=== PATIENT | female | born 1945 | race Caucasian/White ===

== ENCOUNTER → 2017-03-05 | Outpatient (CLI) | payer MEDICARE, OTHER | END | disposition home or self-care (01) | LOC: LAB 08:49 | PROVIDERS: ATTEND Internal Medicine | DX: E11.9 Type 2 diabetes mellitus without complications (principal) | CPT/HCPCS: 36415; 83036 ==

== ENCOUNTER → 2017-09-19 | Outpatient (CLI) | payer MEDICARE, OTHER ==
[2017-09-19 10:01] LABS: Basophils # (auto) 0 uL; Basophils % (auto) 0.6 % (0.0-2.0); Eosinophils # (auto) 0.1 uL; Eosinophils % (auto) 1.1 % (0.0-7.0); Hemoglobin 12.2 g/dL (12.2-16.2); Lymphocytes # (auto) 2.4 uL; Lymphocytes % (auto) 31.8 % (10.0-50.0); Mean Corpuscular Hemoglobin 25.7 pg (28.0-32.0); Mean Corpuscular Hgb Conc. 33.1 g/dL (32.0-36.0); Mean Corpuscular Volume 77.9 fL (80.0-100.0); Mean Platelet Volume 7.2 fL (6.9-10.8); Monocytes # (auto) 0.5 uL; Monocytes % (auto) 6.1 % (0.0-12.0); Neutrophils # (auto) 4.6 uL; Neutrophils % (auto) 60.4 % (37.0-80.0); Nucleated Red Blood Cells % 0.1 %; Platelet Count (auto) 163 10^3/uL (140-450); Red Cell Distribution Width 16.9 % (11.8-14.3); White Blood Cell 7.7 10^3/uL (4.4-10.8)
[2017-09-19 10:16] LABS: BUN/Creatinine Ratio 15.6; Bilirubin, Total 0.6 mg/dL (0.2-1.0); Calcium 9.8 mg/dL (8.5-10.1); Potassium 4.1 mmol/L (3.5-5.1); Total Protein 8.8 g/dL (6.4-8.2)
[2017-09-19 10:17] LABS: Urine Bilirubin Negative (Negative); Urine Blood Negative /uL (Negative); Urine Color Yellow (Yellow); Urine Glucose Normal (Normal); Urine Ketone Negative (Negative); Urine Mucus FEW (None Seen); Urine Nitrite Negative (Negative); Urine RBC <1 /hpf (0 - 4); Urine Squamous Epithelial Cell FEW /hpf (<5); Urine Urobilinogen Normal (Negative); Urine pH 5.5 (5.0-8.0)
== END | disposition home or self-care (01) ==
LOC: LAB 09:10
PROVIDERS: ATTEND Internal Medicine
DX: I10 Essential (primary) hypertension (principal); E11.9 Type 2 diabetes mellitus without complications
CPT/HCPCS: 36415; 80053; 80061; 81001; 82043; 82607; 83036; 84439; 85025; 85652

== ENCOUNTER → 2017-10-07 | Outpatient (CLI) | payer MEDICARE, OTHER | END | disposition home or self-care (01) | LOC: LAB 13:30 | PROVIDERS: ATTEND Internal Medicine | DX: I10 Essential (primary) hypertension (principal); E11.9 Type 2 diabetes mellitus without complications | CPT/HCPCS: 82270 ==

== ENCOUNTER 2017-12-27 09:04 | Day surgery (SDC) | payer MEDICARE, OTHER ==
[2017-12-23 16:45] LABS: INR 1.04 (0.9-1.15); Partial Thromboplastin Time 26.1 sec (22.64-33.71); Prothrombin Time 11.3 sec (9.37-12.3)
[2017-12-23 17:03] LABS: Basophils # (auto) 0 uL; Basophils % (auto) 0.5 % (0.0-2.0); Eosinophils # (auto) 0.1 uL; Eosinophils % (auto) 0.8 % (0.0-7.0); Hematocrit 34.1 % (36.0-46.0); Lymphocytes % (auto) 28.5 % (10.0-50.0); Monocytes # (auto) 0.5 uL; Monocytes % (auto) 6.7 % (0.0-12.0); Neutrophils # (auto) 4.6 uL; Neutrophils % (auto) 63.5 % (37.0-80.0); Nucleated Red Blood Cells % 0.1 %
[2017-12-23 17:05] LABS: Hemoglobin 11.1 g/dL (12.2-16.2); Mean Corpuscular Hemoglobin 25.6 pg (28.0-32.0); Mean Corpuscular Hgb Conc. 32.6 g/dL (32.0-36.0); Mean Corpuscular Volume 78.5 fL (80.0-100.0); Platelet Count (auto) 146 10^3/uL (140-450); Red Blood Cells 4.34 10^6/uL (4.0-5.20); Red Cell Distribution Width 16.5 % (11.8-14.3); White Blood Cell 7.2 10^3/uL (4.4-10.8)
[~2017-12-27] VITALS: Ht 162.6 cm; Wt 63.5 kg
[~2017-12-27 09:04] MED LIST: AMIT25TA9 PO; EZET10TA6 PO; FOLI1TAB6 PO; GLIM4TAB42 PO; METF-372 PO; RAMI2.5C33 PO; SITA100T7 PO
[2017-12-27] MEDS ORDERED: diphenhdrAMINE HCL 50 MG/1 ML VL ONE (09:28)
[2017-12-27] MEDS ORDERED: SODIUM CHLORIDE LOCK 10 ML ONE (09:28)
[2017-12-27] MEDS: MIDAZOLAM HCL 5 MG/ML-1ML VIAL ONE ×2 (10:05→10:08)
[2017-12-27] MEDS: fentaNYL CITRATE 100 MCG/2 ML VL ONE ×2 (10:05→10:08)
[2017-12-27 11:23] VITALS: BP 137/72
== END 2017-12-27 11:23 | disposition home or self-care (01) ==
LOC: GI 09:04
PROVIDERS: ATTEND Internal Medicine Gastroenterology
DX: K62.1 Rectal polyp (principal); K57.30 Diverticulosis of large intestine without perforation or abscess without bleeding; K64.8 Other hemorrhoids; E66.9 Obesity, unspecified; Z68.24 Body mass index [BMI] 24.0-24.9, adult; D69.6 Thrombocytopenia, unspecified
CPT/HCPCS: 36415; 45380; 45385; 82962; 85025; 85610; 85730; J1200; J2250; J3010; 99152; 99153

== ENCOUNTER → 2018-03-04 | Outpatient (CLI) | payer MEDICARE, OTHER | END | disposition home or self-care (01) | LOC: LAB 09:28 | PROVIDERS: ATTEND Internal Medicine | DX: E11.9 Type 2 diabetes mellitus without complications (principal); E78.00 Pure hypercholesterolemia, unspecified | CPT/HCPCS: 36415; 83036; 83721 ==

== ENCOUNTER → 2018-07-31 | Outpatient (CLI) | payer MEDICARE, OTHER ==
[2018-07-31 09:16] LABS: Basophils # (auto) 0 uL; Eosinophils # (auto) 0.1 uL; Mean Corpuscular Volume 78.2 fL (80.0-100.0); Monocytes # (auto) 0.3 uL; Neutrophils # (auto) 2.6 uL; Platelet Count (auto) 122 10^3/uL (140-450)
[2018-07-31 09:23] LABS: Basophils % (auto) 0.4 % (0.0-2.0); Eosinophils % (auto) 1.1 % (0.0-7.0); Hematocrit 33.8 % (36.0-46.0); Hemoglobin 10.8 g/dL (12.2-16.2); Lymphocytes % (auto) 39.6 % (10.0-50.0); Mean Corpuscular Hemoglobin 25.1 pg (28.0-32.0); Mean Corpuscular Hgb Conc. 32.1 g/dL (32.0-36.0); Monocytes % (auto) 7.1 % (0.0-12.0); Neutrophils % (auto) 51.8 % (37.0-80.0); Red Blood Cells 4.32 10^6/uL (4.0-5.20); Red Cell Distribution Width 18.5 % (11.8-14.3); White Blood Cell 4.9 10^3/uL (4.4-10.8)
[2018-07-31 09:49] LABS: Urine Bacteria NONE SEEN /hpf (None Seen); Urine Blood Negative /uL (Negative); Urine Specific Gravity 1.017 (1.001-1.035); Urine WBC 1 /hpf (0 - 5)
[2018-07-31 10:06] LABS: BUN/Creatinine Ratio 20.3; Bilirubin, Total 0.4 mg/dL (0.2-1.0); Calcium 9.4 mg/dL (8.5-10.1); Potassium 4.1 mmol/L (3.5-5.1); Total Protein 7.8 g/dL (6.4-8.2)
[2018-07-31 10:10] LABS: Free T4 (Free Thyroxine) 1.02 ng/dL (0.89-1.76)
== END | disposition home or self-care (01) ==
LOC: LAB 08:51
PROVIDERS: ATTEND Internal Medicine
DX: E11.9 Type 2 diabetes mellitus without complications (principal); E78.00 Pure hypercholesterolemia, unspecified; I10 Essential (primary) hypertension; Z79.899 Other long term (current) drug therapy
CPT/HCPCS: 36415; 80053; 80061; 81001; 82043; 82607; 83036; 84439; 84443; 85025; 85652

== ENCOUNTER → 2018-11-27 | Outpatient (CLI) | payer MEDICARE, OTHER ==
[2018-11-27 09:50] LABS: Basophils # (auto) 0 uL; Eosinophils # (auto) 0.1 uL; Mean Corpuscular Volume 75.4 fL (80.0-100.0); Monocytes # (auto) 0.3 uL; Nucleated Red Blood Cells % 0.1 %; Red Cell Distribution Width 17.8 % (11.8-14.3)
[2018-11-27 09:52] LABS: Basophils % (auto) 0.7 % (0.0-2.0); Eosinophils % (auto) 1.5 % (0.0-7.0); Hematocrit 32.1 % (36.0-46.0); Hemoglobin 10.2 g/dL (12.2-16.2); Lymphocytes # (auto) 1.7 uL; Lymphocytes % (auto) 33.8 % (10.0-50.0); Mean Corpuscular Hgb Conc. 31.9 g/dL (32.0-36.0); Monocytes % (auto) 6.7 % (0.0-12.0); Neutrophils # (auto) 2.8 uL; Neutrophils % (auto) 57.3 % (37.0-80.0); Platelet Count (auto) 145 10^3/uL (140-450); Red Blood Cells 4.26 10^6/uL (4.0-5.20); White Blood Cell 4.9 10^3/uL (4.4-10.8)
== END | disposition home or self-care (01) ==
LOC: LAB 09:13
PROVIDERS: ATTEND Internal Medicine
DX: D64.9 Anemia, unspecified (principal)
CPT/HCPCS: 36415; 82607; 83540; 83615; 85025

== ENCOUNTER → 2019-03-03 | Outpatient (CLI) | payer MEDICARE, OTHER | END | disposition home or self-care (01) | LOC: LAB 09:35 | PROVIDERS: ATTEND Internal Medicine | DX: E11.9 Type 2 diabetes mellitus without complications (principal); E78.5 Hyperlipidemia, unspecified | CPT/HCPCS: 36415; 83036; 83540; 83721 ==

== ENCOUNTER → 2019-08-06 | Outpatient (CLI) | payer MEDICARE, OTHER ==
[~2019-08-06] MED LIST changes: +EZET10TA22 PO; -EZET10TA6 PO
[2019-08-06 10:20] LABS: Urine Bacteria FEW /hpf (None Seen); Urine Blood Negative /uL (Negative); Urine Mucus FEW (None Seen); Urine Specific Gravity 1.013 (1.001-1.035); Urine WBC 12 /hpf (0 - 5)
[2019-08-06 10:27] LABS: Basophils # (auto) 0 uL; Basophils % (auto) 0.7 % (0.0-2.0); Eosinophils # (auto) 0.1 uL; Eosinophils % (auto) 1.4 % (0.0-7.0); Hematocrit 32.3 % (36.0-46.0); Hemoglobin 10.7 g/dL (12.2-16.2); Lymphocytes # (auto) 1.4 uL; Mean Corpuscular Hemoglobin 26.2 pg (28.0-32.0); Mean Corpuscular Hgb Conc. 33.1 g/dL (32.0-36.0); Mean Corpuscular Volume 79.2 fL (80.0-100.0); Monocytes # (auto) 0.3 uL; Neutrophils # (auto) 2.6 uL; Neutrophils % (auto) 58.9 % (37.0-80.0); Nucleated Red Blood Cells % 0.1 %; Platelet Count (auto) 124 10^3/uL (140-450); Red Blood Cells 4.07 10^6/uL (4.0-5.20); Red Cell Distribution Width 16.5 % (11.8-14.3); White Blood Cell 4.4 10^3/uL (4.4-10.8)
[2019-08-06 11:00] LABS: Potassium 4.1 mmol/L (3.5-5.1)
[2019-08-06 11:09] LABS: BUN/Creatinine Ratio 16.5; Bilirubin, Total 0.6 mg/dL (0.2-1.0); Calcium 9.8 mg/dL (8.5-10.1); Total Protein 7.8 g/dL (6.4-8.2)
[2019-08-06 11:38] LABS: Free T4 (Free Thyroxine) 1.05 ng/dL (0.89-1.76)
[2019-08-06 11:39] LABS: Folate (Folic Acid) 21.37 ng/mL (5.38-24)
== END | disposition home or self-care (01) ==
LOC: LAB 09:38
PROVIDERS: ATTEND Internal Medicine
DX: E11.9 Type 2 diabetes mellitus without complications (principal); I10 Essential (primary) hypertension; D64.9 Anemia, unspecified
CPT/HCPCS: 36415; 80053; 80061; 81001; 82043; 82607; 82746; 83036; 83540; 84439; 84443; 85025; 85652

== ENCOUNTER → 2019-10-07 | Outpatient (CLI) | payer MEDICARE, OTHER ==
[2019-10-07 09:30] LABS: Hematocrit 32.6 % (36.0-46.0); Hemoglobin 10.8 g/dL (12.2-16.2); Mean Corpuscular Volume 80.2 fL (80.0-100.0); Red Blood Cells 4.07 10^6/uL (4.0-5.20)
[2019-10-07 09:32] LABS: Basophils # (auto) 0 uL; Basophils % (auto) 0.7 % (0.0-2.0); Eosinophils # (auto) 0.1 uL; Eosinophils % (auto) 1.2 % (0.0-7.0); Lymphocytes # (auto) 1.1 uL; Lymphocytes % (auto) 28.2 % (10.0-50.0); Mean Corpuscular Hemoglobin 26.6 pg (28.0-32.0); Mean Corpuscular Hgb Conc. 33.2 g/dL (32.0-36.0); Monocytes # (auto) 0.3 uL; Monocytes % (auto) 8.3 % (0.0-12.0); Neutrophils # (auto) 2.5 uL; Neutrophils % (auto) 61.6 % (37.0-80.0); Nucleated Red Blood Cells % 0.2 %; Platelet Count (auto) 105 10^3/uL (140-450); Red Cell Distribution Width 19.1 % (11.8-14.3)
[2019-10-07 10:21] LABS: % Iron Saturation 11.6 % (15-50)
[2019-10-07 10:26] LABS: Albumin 3.7 g/dL (3.4-5.0); Calcium 9.5 mg/dL (8.5-10.1); Potassium 3.9 mmol/L (3.5-5.1)
[2019-10-07 10:30] LABS: BUN/Creatinine Ratio 18.7; Bilirubin, Total 0.5 mg/dL (0.2-1.0); Total Protein 7.6 g/dL (6.4-8.2)
[2019-10-08 15:47] LABS: Hepatitis B Surface Antibody Negative
[2019-10-08 16:21] LABS: Hepatitis B Surface Antigen Negative (Negative)
[2019-10-08 16:25] LABS: Hepatitis A Total Antibody Positive
[2019-10-08 16:44] LABS: Hepatitis B Core Total AB Negative; Hepatitis C Antibody Negative (Negative)
== END | disposition home or self-care (01) ==
LOC: LAB 09:09
PROVIDERS: ATTEND Internal Medicine
DX: D64.9 Anemia, unspecified (principal); Z11.59 Encounter for screening for other viral diseases
CPT/HCPCS: 36415; 80053; 83540; 83550; 83615; 85025; 86704; 86706; 86708; 86803; 87340

== ENCOUNTER → 2019-12-11 | Outpatient (CLI) | payer MEDICARE, OTHER | END | disposition home or self-care (01) | LOC: XYW 09:34 | PROVIDERS: ATTEND Internal Medicine | DX: I08.2 Rheumatic disorders of both aortic and tricuspid valves (principal); I25.10 Atherosclerotic heart disease of native coronary artery without angina pectoris | CPT/HCPCS: 93306 ==

== ENCOUNTER → 2019-12-15 | Outpatient (CLI) | payer MEDICARE, OTHER ==
[2019-12-15 10:26] LABS: % Iron Saturation 25.5 % (15-50)
== END | disposition home or self-care (01) ==
LOC: LAB 09:48
PROVIDERS: ATTEND Internal Medicine Hematology & Oncology
DX: R94.5 Abnormal results of liver function studies (principal); I25.10 Atherosclerotic heart disease of native coronary artery without angina pectoris; D50.9 Iron deficiency anemia, unspecified
CPT/HCPCS: 83540; 83550

== ENCOUNTER → 2020-01-05 | Outpatient (CLI) | payer MEDICARE, OTHER ==
[~2020-01-05] MED LIST changes: +ASPI-404 PO; +CHOL200031 PO; +FERR-20 PO; +LEVO25TA6 PO
[2020-01-05 09:49] LABS: Urine WBC None Seen /hpf (0 - 5)
[2020-01-05 09:54] LABS: Basophils # (auto) 0 uL; Basophils % (auto) 0.5 % (0.0-2.0); Eosinophils # (auto) 0.1 uL; Eosinophils % (auto) 1.3 % (0.0-7.0); Hematocrit 35.6 % (36.0-46.0); Hemoglobin 11.9 g/dL (12.2-16.2); Lymphocytes # (auto) 1.5 uL; Lymphocytes % (auto) 34.4 % (10.0-50.0); Mean Corpuscular Hemoglobin 28.4 pg (28.0-32.0); Mean Corpuscular Hgb Conc. 33.3 g/dL (32.0-36.0); Mean Corpuscular Volume 85.5 fL (80.0-100.0); Monocytes # (auto) 0.3 uL; Monocytes % (auto) 6.5 % (0.0-12.0); Neutrophils # (auto) 2.6 uL; Neutrophils % (auto) 57.3 % (37.0-80.0); Nucleated Red Blood Cells % 0.2 %; Platelet Count (auto) 90 10^3/uL (140-450); Red Blood Cells 4.17 10^6/uL (4.0-5.20); Red Cell Distribution Width 17.5 % (11.8-14.3); White Blood Cell 4.5 10^3/uL (4.4-10.8)
[2020-01-05 09:59] LABS: Urine Bacteria NONE SEEN /hpf (None Seen); Urine Blood Negative /uL (Negative); Urine Mucus FEW (None Seen); Urine Specific Gravity 1.022 (1.001-1.035)
[2020-01-05 10:16] LABS: Potassium 3.9 mmol/L (3.5-5.1)
[2020-01-05 10:21] LABS: Free T4 (Free Thyroxine) 1.03 ng/dL (0.89-1.76)
[2020-01-05 10:22] LABS: % Iron Saturation 19.5 % (15-50)
[2020-01-05 10:27] LABS: Albumin 4.2 g/dL (3.4-5.0); BUN/Creatinine Ratio 18.4; Bilirubin, Total 0.7 mg/dL (0.2-1.0); Calcium 10.2 mg/dL (8.5-10.1)
[2020-01-05 10:32] LABS: INR 1.14 (0.9-1.15)
== END | disposition home or self-care (01) ==
LOC: LAB 09:18
PROVIDERS: ATTEND Internal Medicine
DX: Z01.818 Encounter for other preprocedural examination (principal); E11.40 Type 2 diabetes mellitus with diabetic neuropathy, unspecified; D64.9 Anemia, unspecified; I10 Essential (primary) hypertension
CPT/HCPCS: 36415; 80053; 80061; 81001; 82043; 82607; 83036; 83540; 83550; 84439; 84443; 85025; 85610; 85652

== ENCOUNTER → 2020-01-18 | Day surgery (SDC) | payer MEDICARE, OTHER ==
[2020-01-15 11:07] LABS: Basophils # (auto) 0 uL; Basophils % (auto) 0.5 % (0.0-2.0); Eosinophils # (auto) 0 uL; Eosinophils % (auto) 0.7 % (0.0-7.0); Hemoglobin 11.4 g/dL (12.2-16.2); Lymphocytes % (auto) 20.4 % (10.0-50.0); Mean Corpuscular Hemoglobin 28.7 pg (28.0-32.0); Mean Corpuscular Hgb Conc. 33.6 g/dL (32.0-36.0); Mean Corpuscular Volume 85.6 fL (80.0-100.0); Monocytes # (auto) 0.3 uL; Monocytes % (auto) 6.6 % (0.0-12.0); Neutrophils # (auto) 3.3 uL; Neutrophils % (auto) 71.8 % (37.0-80.0); Platelet Count (auto) 102 10^3/uL (140-450); Red Blood Cells 3.98 10^6/uL (4.0-5.20); Red Cell Distribution Width 16.7 % (11.8-14.3); White Blood Cell 4.7 10^3/uL (4.4-10.8)
[2020-01-15 11:20] LABS: Urine Bacteria FEW /hpf (None Seen); Urine Blood Negative /uL (Negative); Urine Mucus FEW (None Seen); Urine Specific Gravity 1.031 (1.001-1.035); Urine WBC 5 /hpf (0 - 5)
[2020-01-15 11:25] LABS: INR 1.16 (0.9-1.15); Partial Thromboplastin Time 25.9 sec (23.64-32.05)
[2020-01-15 11:35] LABS: Potassium 4.1 mmol/L (3.5-5.1)
[2020-01-15 11:42] LABS: Albumin 3.8 g/dL (3.4-5.0); BUN/Creatinine Ratio 16.1; Bilirubin, Total 0.8 mg/dL (0.2-1.0); Calcium 9.9 mg/dL (8.5-10.1); Total Protein 7.9 g/dL (6.4-8.2)
[~2020-01-18] VITALS: Ht 162.6 cm; Wt 72.6 kg
[~2020-01-18] MED LIST changes: +EPINEPHrine HCL 1 MG/1 ML AMP ONE; -EZET10TA22 PO; +MIDAZOLAM HCL 1MG/1ML-2 ML VIAL ONE; +ONDANSETRON HCL 4 MG/2 ML VIAL IV PRN; +PROPOFOL 10 MG/ML 20 ML IV ONE; +ROCURONIUM 10MG/ML 10ML VIAL IV ONE; +ROPIVACAINE 0.5% (5MG/ML) 20ML AMPULE IJ ONE; +SUCCINYLCHOLINE CHLORIDE 20 MG/ML 10ML VIAL IV ONE; +ceFAZolin 1GM/50ML 50 ML IV ONE; +ePHEDrine SULFATE 50 MG/ML AMP IV PRN; +fentaNYL CITRATE 100 MCG/2 ML VL IV ONE; +fentaNYL CITRATE 100 MCG/2 ML VL IV PRN; +fentaNYL CITRATE 100 MCG/2 ML VL ONE; +hydrALAZINE HCL 20 MG/ML VL IV PRN
[2020-01-18 09:24] VITALS: BP 128/59
== END | disposition home or self-care (01) ==
LOC: SUR 06:11
PROVIDERS: ATTEND Orthopaedic Surgery Adult Reconstructive Orthopaedic Surgery
DX: S83.242A Other tear of medial meniscus, current injury, left knee, initial encounter (principal); D64.9 Anemia, unspecified; J45.909 Unspecified asthma, uncomplicated; I25.10 Atherosclerotic heart disease of native coronary artery without angina pectoris; E11.9 Type 2 diabetes mellitus without complications; Z98.890 Other specified postprocedural states; X58.XXXA Exposure to other specified factors, initial encounter; Y93.89 Activity, other specified; Y92.89 Other specified places as the place of occurrence of the external cause; Y99.8 Other external cause status
CPT/HCPCS: 29880; 36415; 80053; 81001; 82962; 85025; 85610; 85730; J0171; J0330; J0690; J2250; J2704; J2795; J3010

== ENCOUNTER → 2020-02-10 | Outpatient (CLI) | payer MEDICARE, OTHER ==
[~2020-02-10] MED LIST changes: -ASPI-404 PO; +ASPI-543 PO; -EPINEPHrine HCL 1 MG/1 ML AMP ONE; -MIDAZOLAM HCL 1MG/1ML-2 ML VIAL ONE; -ONDANSETRON HCL 4 MG/2 ML VIAL IV PRN; -PROPOFOL 10 MG/ML 20 ML IV ONE; -ROCURONIUM 10MG/ML 10ML VIAL IV ONE; -ROPIVACAINE 0.5% (5MG/ML) 20ML AMPULE IJ ONE; -SUCCINYLCHOLINE CHLORIDE 20 MG/ML 10ML VIAL IV ONE; -ceFAZolin 1GM/50ML 50 ML IV ONE; -ePHEDrine SULFATE 50 MG/ML AMP IV PRN; -fentaNYL CITRATE 100 MCG/2 ML VL IV ONE; -fentaNYL CITRATE 100 MCG/2 ML VL IV PRN; -fentaNYL CITRATE 100 MCG/2 ML VL ONE; -hydrALAZINE HCL 20 MG/ML VL IV PRN
[2020-02-10 11:38] LABS: Basophils # (auto) 0 10 ^3/uL (0-0.2); Basophils % (auto) 0.8 % (0.0-2.0); Eosinophils # (auto) 0 10 ^3/uL (0-0.8); Eosinophils % (auto) 1.1 % (0.0-7.0); Hematocrit 32.4 % (36.0-46.0); Hemoglobin 10.6 g/dL (12.2-16.2); Lymphocytes # (auto) 0.9 10 ^3/uL (0.4-5.4); Lymphocytes % (auto) 25.1 % (10.0-50.0); Mean Corpuscular Hgb Conc. 32.8 g/dL (32.0-36.0); Mean Corpuscular Volume 85.3 fL (80.0-100.0); Monocytes # (auto) 0.3 10 ^3/uL (0-1.3); Monocytes % (auto) 7.3 % (0.0-12.0); Neutrophils # (auto) 2.4 10 ^3/uL (1.6-8.6); Neutrophils % (auto) 65.7 % (37.0-80.0); Nucleated Red Blood Cells % 0.1 %; Platelet Count (auto) 122 10^3/uL (140-450); Red Blood Cells 3.79 10^6/uL (4.0-5.20); Red Cell Distribution Width 16.7 % (11.8-14.3); White Blood Cell 3.6 10^3/uL (4.4-10.8)
[2020-02-10 12:02] LABS: Albumin 3.7 g/dL (3.4-5.0); Calcium 9.9 mg/dL (8.5-10.1); Potassium 4.3 mmol/L (3.5-5.1)
[2020-02-10 12:07] LABS: % Iron Saturation 19.2 % (15-50); BUN/Creatinine Ratio 14.8; Bilirubin, Total 0.8 mg/dL (0.2-1.0); Total Protein 7.9 g/dL (6.4-8.2)
[2020-02-10 12:08] LABS: Ferritin 83.9 ng/mL (10-322)
[2020-02-10 12:09] LABS: Folate (Folic Acid) 22.65 ng/mL (5.38-24)
== END | disposition home or self-care (01) ==
LOC: LAB 11:14
PROVIDERS: ATTEND Internal Medicine Hematology & Oncology
DX: D50.9 Iron deficiency anemia, unspecified (principal); R94.5 Abnormal results of liver function studies
CPT/HCPCS: 36415; 80053; 82607; 82728; 82746; 83540; 83550; 85025

== ENCOUNTER → 2020-06-21 | Outpatient (CLI) | payer MEDICARE, OTHER ==
[~2020-06-21] MED LIST changes: +ASPI-404 PO; -ASPI-543 PO
[2020-06-21 10:39] LABS: Basophils # (auto) 0 10 ^3/uL (0-0.2); Eosinophils # (auto) 0 10 ^3/uL (0-0.8); Hemoglobin 10.9 g/dL (12.2-16.2); Lymphocytes # (auto) 1.3 10 ^3/uL (0.4-5.4); Monocytes # (auto) 0.4 10 ^3/uL (0-1.3); Nucleated Red Blood Cells % 0.1 %; White Blood Cell 4.8 10^3/uL (4.4-10.8)
[2020-06-21 10:41] LABS: Basophils % (auto) 0.4 % (0.0-2.0); Eosinophils % (auto) 0.5 % (0.0-7.0); Hematocrit 33.3 % (36.0-46.0); Lymphocytes % (auto) 26.2 % (10.0-50.0); Mean Corpuscular Hgb Conc. 32.8 g/dL (32.0-36.0); Mean Corpuscular Volume 82.3 fL (80.0-100.0); Monocytes % (auto) 7.4 % (0.0-12.0); Neutrophils # (auto) 3.1 10 ^3/uL (1.6-8.6); Neutrophils % (auto) 65.5 % (37.0-80.0); Platelet Count (auto) 99 10^3/uL (140-450); Red Blood Cells 4.05 10^6/uL (4.0-5.20); Red Cell Distribution Width 17.7 % (11.8-14.3)
[2020-06-21 11:16] LABS: Cholesterol 288 mg/dL (< 200); HDL Cholesterol 61 mg/dL (40-59); LDL Cholesterol 197 mg/dL (< 100); Triglycerides 112 mg/dL (< 150)
[2020-06-21 11:29] LABS: Prolactin 28.8 ng/mL (2.8-29.2)
[2020-06-21 11:30] LABS: Free T4 (Free Thyroxine) 0.93 ng/dL (0.89-1.76)
== END | disposition home or self-care (01) ==
LOC: LAB 10:05
PROVIDERS: ATTEND Internal Medicine
DX: E11.42 Type 2 diabetes mellitus with diabetic polyneuropathy (principal); E03.9 Hypothyroidism, unspecified; D35.2 Benign neoplasm of pituitary gland
CPT/HCPCS: 36415; 80061; 83036; 84146; 84439; 84443; 85025

== ENCOUNTER → 2020-10-24 | Outpatient (CLI) | payer MEDICARE, OTHER ==
[~2020-10-24] MED LIST changes: -ASPI-404 PO; +ASPI-543 PO
[2020-10-24 09:57] LABS: Basophils # (auto) 0 10 ^3/uL (0-0.2); Basophils % (auto) 0.7 % (0.0-2.0); Eosinophils # (auto) 0.1 10 ^3/uL (0-0.8); Eosinophils % (auto) 1.7 % (0.0-7.0); Hematocrit 32.8 % (36.0-46.0); Hemoglobin 10.8 g/dL (12.2-16.2); Lymphocytes # (auto) 1.3 10 ^3/uL (0.4-5.4); Lymphocytes % (auto) 32.6 % (10.0-50.0); Mean Corpuscular Hemoglobin 27.4 pg (28.0-32.0); Mean Corpuscular Hgb Conc. 32.9 g/dL (32.0-36.0); Mean Corpuscular Volume 83.2 fL (80.0-100.0); Monocytes # (auto) 0.4 10 ^3/uL (0-1.3); Monocytes % (auto) 9.1 % (0.0-12.0); Neutrophils # (auto) 2.2 10 ^3/uL (1.6-8.6); Neutrophils % (auto) 55.9 % (37.0-80.0); Nucleated Red Blood Cells % 0.1 %; Platelet Count (auto) 108 10^3/uL (140-450); Red Blood Cells 3.95 10^6/uL (4.0-5.20); Red Cell Distribution Width 17.9 % (11.8-14.3)
[2020-10-24 10:28] LABS: Albumin 3.7 g/dL (3.4-5.0); BUN/Creatinine Ratio 14.1; Calcium 9.7 mg/dL (8.5-10.1); Potassium 4.1 mmol/L (3.5-5.1)
[2020-10-24 10:33] LABS: Bilirubin, Total 0.8 mg/dL (0.2-1.0); Total Protein 7.5 g/dL (6.4-8.2)
[2020-10-24 14:07] LABS: % Iron Saturation 12.5 % (15-50)
[2020-10-24 14:58] LABS: Ferritin 17.4 ng/mL (10-322)
[2020-10-24 14:59] LABS: Folate (Folic Acid) > 24.00 ng/mL (5.38-24)
== END | disposition home or self-care (01) ==
LOC: LAB 09:33
PROVIDERS: ATTEND Internal Medicine
DX: E11.9 Type 2 diabetes mellitus without complications (principal); E78.5 Hyperlipidemia, unspecified
CPT/HCPCS: 36415; 80053; 80061; 82607; 82728; 82746; 83036; 83540; 83550; 83615; 84443; 85025

== ENCOUNTER 2020-11-14 09:40 | Inpatient (IN) | payer MEDICARE, OTHER ==
[~2020-11-14] VITALS: Ht 162.6 cm; Wt 65.0 kg
[2020-11-14] MEDS ORDERED: SODIUM CHLORIDE 0.9% 1,000 ML IV ONE (10:00)
[2020-11-14 10:07] LABS: Basophils # (auto) 0 10 ^3/uL (0-0.2); Basophils % (auto) 0.4 % (0.0-2.0); Eosinophils # (auto) 0 10 ^3/uL (0-0.8); Hematocrit 32.9 % (36.0-46.0); Hemoglobin 11.1 g/dL (12.2-16.2); Lymphocytes # (auto) 0.8 10 ^3/uL (0.4-5.4); Lymphocytes % (auto) 9.1 % (10.0-50.0); Mean Corpuscular Hgb Conc. 33.9 g/dL (32.0-36.0); Mean Corpuscular Volume 79.8 fL (80.0-100.0); Monocytes # (auto) 0.6 10 ^3/uL (0-1.3); Monocytes % (auto) 6.4 % (0.0-12.0); Neutrophils # (auto) 7.6 10 ^3/uL (1.6-8.6); Neutrophils % (auto) 84.1 % (37.0-80.0); Nucleated Red Blood Cells % 0.1 %; Platelet Count (auto) 153 10^3/uL (140-450); Red Blood Cells 4.12 10^6/uL (4.0-5.20); Red Cell Distribution Width 16.8 % (11.8-14.3)
[2020-11-14 10:29] LABS: Calcium 9.1 mg/dL (8.5-10.1); Chloride 91 mmol/L (98-107); Potassium 3.7 mmol/L (3.5-5.1); Sodium 124 mmol/L (136-145)
[2020-11-14 10:39] LABS: Alanine Aminotransferase 34 U/L (13-56); Alkaline Phosphatase 238 U/L (45-117); Anion Gap 12 (5-15); Aspartate Aminotransferase 57 U/L (15-37); BUN/Creatinine Ratio 14.3; Bilirubin, Total 1.2 mg/dL (0.2-1.0); Blood Urea Nitrogen 13 mg/dL (7-18); Carbon Dioxide 21 mmol/L (21-32); GFR African American 77 mL/min; GFR Non-African American 64 mL/min; Glucose 304 mg/dL (74-106); Total Protein 7.6 g/dL (6.4-8.2)
[2020-11-14 10:48] LABS: INR 1.17 (0.9-1.15); Partial Thromboplastin Time 26.2 sec (23.0-31.2)
[2020-11-14] MEDS ORDERED: DOXYCYCLINE 100MG/250ML 250 ML IV ONE (18:00)
[2020-11-14] MEDS ORDERED: MORPHINE SULF INJ 2 MG/ML SYRINGE 1ML IV PRN ×2 (18:45)
[2020-11-14] MEDS ORDERED: DEXTROSE (50%) 50ML SYRG IV PRN (18:45)
[2020-11-14] MEDS ORDERED: HYDROcodone-ACET 5/325MG TAB PO PRN (18:45)
[2020-11-14] MEDS ORDERED: ONDANSETRON HCL 4 MG/2 ML VIAL IV PRN (18:45)
[2020-11-14] MEDS ORDERED: REMDESIVIR PER PHARMACY 0 ML IV SCH (18:45)
[2020-11-14] MEDS ORDERED: ACETAMINOPHEN 500 MG TAB PO PRN (18:45)
[2020-11-14] MEDS ORDERED: NITROGLYCERIN 0.4 MG SL TAB SL PRN (18:45)
[2020-11-14] MEDS: InsuLIN REG 1unit/0.01ml Soln (100units/ml) SC SCH (21:32)
[2020-11-14] MEDS: BUDESONIDE (INHALATION) 180 MCG IH IN SCH (21:32)
[2020-11-14 21:33] LABS: CRP High Sensitivity 16.3 mg/dL (< 0.3)
[2020-11-14] MEDS: ENOXAPARIN SOD 40 MG/0.4 ML SYRINGE SC SCH (21:33)
[2020-11-14] MEDS: ACCU-CHEK COMFORT CURVE STRIP VI SCH (21:33)
[2020-11-14] MEDS ORDERED: BUDESONIDE (INHALATION) 0.5 MG/2 ML NEB NEB SCH (22:00)
[2020-11-15 05:47] LABS: Basophils # (auto) 0 10 ^3/uL (0-0.2); Eosinophils # (auto) 0 10 ^3/uL (0-0.8); Hemoglobin 10.3 g/dL (12.2-16.2); Lymphocytes # (auto) 0.9 10 ^3/uL (0.4-5.4); Monocytes # (auto) 0.6 10 ^3/uL (0-1.3); Monocytes % (auto) 7.6 % (0.0-12.0); White Blood Cell 7.5 10^3/uL (4.4-10.8)
[2020-11-15 05:49] LABS: Basophils % (auto) 0.1 % (0.0-2.0); Hematocrit 31.1 % (36.0-46.0); Lymphocytes % (auto) 11.5 % (10.0-50.0); Mean Corpuscular Hemoglobin 26.4 pg (28.0-32.0); Mean Corpuscular Hgb Conc. 33.1 g/dL (32.0-36.0); Mean Corpuscular Volume 79.7 fL (80.0-100.0); Neutrophils # (auto) 6.1 10 ^3/uL (1.6-8.6); Neutrophils % (auto) 80.8 % (37.0-80.0); Platelet Count (auto) 165 10^3/uL (140-450); Red Cell Distribution Width 16.7 % (11.8-14.3)
[2020-11-15 06:05] LABS: BUN/Creatinine Ratio 13.1; Calcium 8.7 mg/dL (8.5-10.1); Potassium 3.2 mmol/L (3.5-5.1)
[2020-11-15] MEDS: BUDESONIDE (INHALATION) 180 MCG IH IN SCH ×2 (07:02→19:07)
[2020-11-15] MEDS: InsuLIN REG 1unit/0.01ml Soln (100units/ml) SC SCH ×4 (07:03→22:00)
[2020-11-15] MEDS: ACCU-CHEK COMFORT CURVE STRIP VI SCH ×4 (07:03→22:00)
[2020-11-15] MEDS: CHOLECALCIFEROL (VITD3) 2,000 UNIT CAP PO SCH (10:00)
[2020-11-15] MEDS: cefTRIAXone 1GM/50ML D5W 50 ML IV SCH (11:10)
[2020-11-15] MEDS: ZINC SULFATE 220mg CAP or TAB PO SCH (11:11)
[2020-11-15] MEDS: AZITHROMYCIN 500MG/ 250ML 250 ML IV SCH (11:11)
[2020-11-15] MEDS: FAMOTIDINE 20 MG TAB PO SCH (11:12)
[2020-11-15] MEDS: ASCORBIC ACID 1,000 MG TAB PO SCH (11:12)
[2020-11-15] MEDS: DexAMETHasone SOD PHOS 10MG/1ML VIAL INJ IV SCH (11:12)
[2020-11-15] MEDS: ENOXAPARIN SOD 40 MG/0.4 ML SYRINGE SC SCH ×2 (11:12→22:00)
[2020-11-15 12:06] LABS: Albumin 2.6 g/dL (3.4-5.0); Bilirubin, Direct 0.6 mg/dL (0-0.2); Bilirubin, Total 0.9 mg/dL (0.2-1.0); Total Protein 6.5 g/dL (6.4-8.2)
[2020-11-15 12:06] LABS: Urine Bacteria NONE SEEN /hpf (None Seen); Urine Blood Negative /uL (Negative); Urine Mucus FEW (None Seen); Urine Specific Gravity 1.016 (1.001-1.035); Urine WBC 7 /hpf (0 - 5)
[2020-11-15] MEDS: ALBUTEROL SULF HFA 90MCG INH 200DOSE IN PRN ×2 (14:56→21:21)
[2020-11-15] MEDS ORDERED: FUROSEMIDE 20 MG/2 ML VIAL IV ONE (16:00)
[2020-11-15] MEDS ORDERED: POTASSIUM CHL 10 Meq TABLET PO ONE (16:00)
[2020-11-15] MEDS ORDERED: REMDESIVIR 200 MG in NS 210ml LOADING DOSE ADULT IV ONE (17:00)
[2020-11-15] MEDS: FERROUS SULFATE 325 MG TAB PO SCH (18:00)
[2020-11-15] MEDS ORDERED: IOHEXOL 350 MG/ML 100ML IJ ONE (21:54)
[2020-11-16 00:30] VITALS: BP 145/76
[2020-11-16 01:42] VITALS: BP 145/76
[2020-11-16 05:00] VITALS: BP 143/60
[2020-11-16] MEDS: LEVOTHYROXINE SODIUM 25 MCG TAB PO SCH (06:07)
[2020-11-16] MEDS: InsuLIN REG 1unit/0.01ml Soln (100units/ml) SC SCH ×4 (06:07→21:22)
[2020-11-16] MEDS: ACCU-CHEK COMFORT CURVE STRIP VI SCH ×4 (06:08→21:13)
[2020-11-16 06:11] LABS: Basophils # (auto) 0 10 ^3/uL (0-0.2); Basophils % (auto) 0.1 % (0.0-2.0); Eosinophils # (auto) 0 10 ^3/uL (0-0.8); Hematocrit 33.1 % (36.0-46.0); Hemoglobin 11.3 g/dL (12.2-16.2); Lymphocytes # (auto) 0.7 10 ^3/uL (0.4-5.4); Lymphocytes % (auto) 7.9 % (10.0-50.0); Mean Corpuscular Hgb Conc. 34.1 g/dL (32.0-36.0); Mean Corpuscular Volume 79.4 fL (80.0-100.0); Monocytes # (auto) 0.7 10 ^3/uL (0-1.3); Monocytes % (auto) 7.2 % (0.0-12.0); Neutrophils % (auto) 84.8 % (37.0-80.0); Platelet Count (auto) 181 10^3/uL (140-450); Red Blood Cells 4.18 10^6/uL (4.0-5.20); Red Cell Distribution Width 16.7 % (11.8-14.3); White Blood Cell 9.4 10^3/uL (4.4-10.8)
[2020-11-16 06:18] LABS: INR 1.24 (0.9-1.15)
[2020-11-16 06:29] LABS: Chloride 99 mmol/L (98-107); Potassium 3.4 mmol/L (3.5-5.1); Sodium 134 mmol/L (136-145)
[2020-11-16 06:47] LABS: Alanine Aminotransferase 22 U/L (13-56); Albumin 2.6 g/dL (3.4-5.0); Alkaline Phosphatase 199 U/L (45-117); Anion Gap 8 (5-15); Aspartate Aminotransferase 48 U/L (15-37); BUN/Creatinine Ratio 19.7; Bilirubin, Total 0.9 mg/dL (0.2-1.0); Blood Urea Nitrogen 14 mg/dL (7-18); Calcium 8.9 mg/dL (8.5-10.1); Carbon Dioxide 27 mmol/L (21-32); Cholesterol 186 mg/dL (< 200); GFR African American 103 mL/min; GFR Non-African American 85 mL/min; Glucose 177 mg/dL (74-106); HDL Cholesterol 24 mg/dL (40-59); LDL Cholesterol 126 mg/dL (< 100); Total Protein 7.4 g/dL (6.4-8.2); Triglycerides 141 mg/dL (< 150)
[2020-11-16 08:00] VITALS: BP 135/77
[2020-11-16] MEDS: BUDESONIDE (INHALATION) 180 MCG IH IN SCH ×2 (09:07→22:15)
[2020-11-16] MEDS: ALBUTEROL SULF HFA 90MCG INH 200DOSE IN PRN ×2 (09:07→22:14)
[2020-11-16] MEDS: FERROUS SULFATE 325 MG TAB PO SCH ×2 (09:38→18:00)
[2020-11-16] MEDS: cefTRIAXone 1GM/50ML D5W 50 ML IV SCH (09:39)
[2020-11-16] MEDS: POTASSIUM CHL 10 Meq TABLET PO SCH (09:40)
[2020-11-16] MEDS: CHOLECALCIFEROL (VITD3) 2,000 UNIT CAP PO SCH (09:41)
[2020-11-16] MEDS: ZINC SULFATE 220mg CAP or TAB PO SCH (09:41)
[2020-11-16] MEDS: ASCORBIC ACID 1,000 MG TAB PO SCH (09:43)
[2020-11-16] MEDS: FAMOTIDINE 20 MG TAB PO SCH (09:43)
[2020-11-16] MEDS: DexAMETHasone SOD PHOS 10MG/1ML VIAL INJ IV SCH (09:45)
[2020-11-16] MEDS: FUROSEMIDE 20 MG/2 ML VIAL IV SCH (09:45)
[2020-11-16] MEDS: ENOXAPARIN SOD 40 MG/0.4 ML SYRINGE SC SCH ×2 (09:46→21:13)
[2020-11-16] MEDS ORDERED: POTASSIUM EFFERVESENT TAB 25 MEQ PO ONE (11:45)
[2020-11-16] MEDS: AZITHROMYCIN 500MG/ 250ML 250 ML IV SCH (11:56)
[2020-11-16] MEDS: REMDESIVIR 100 MG in SODIUM CHL 0.9% 250 ML IV SCH (15:48)
[2020-11-16 17:00] VITALS: BP 141/78
[2020-11-16 22:00] VITALS: BP 139/59
[2020-11-17 04:27] VITALS: BP 135/78
[2020-11-17] MEDS: LEVOTHYROXINE SODIUM 25 MCG TAB PO SCH (05:58)
[2020-11-17] MEDS: ACCU-CHEK COMFORT CURVE STRIP VI SCH ×4 (05:58→22:23)
[2020-11-17] MEDS: InsuLIN REG 1unit/0.01ml Soln (100units/ml) SC SCH ×4 (05:59→22:24)
[2020-11-17 06:18] LABS: Potassium 3.5 mmol/L (3.5-5.1)
[2020-11-17 06:41] LABS: Albumin 2.4 g/dL (3.4-5.0); BUN/Creatinine Ratio 26.2; Bilirubin, Total 0.8 mg/dL (0.2-1.0); Calcium 8.6 mg/dL (8.5-10.1); Total Protein 6.8 g/dL (6.4-8.2)
[2020-11-17] MEDS: cefTRIAXone 1GM/50ML D5W 50 ML IV SCH (08:10)
[2020-11-17] MEDS: ZINC SULFATE 220mg CAP or TAB PO SCH (08:10)
[2020-11-17] MEDS: DexAMETHasone SOD PHOS 10MG/1ML VIAL INJ IV SCH (08:10)
[2020-11-17] MEDS: POTASSIUM CHL 10 Meq TABLET PO SCH (08:10)
[2020-11-17] MEDS: FERROUS SULFATE 325 MG TAB PO SCH ×2 (08:10→17:19)
[2020-11-17] MEDS: ENOXAPARIN SOD 40 MG/0.4 ML SYRINGE SC SCH ×2 (08:11→22:22)
[2020-11-17] MEDS: ASCORBIC ACID 1,000 MG TAB PO SCH ×2 (08:11→08:28)
[2020-11-17] MEDS: FAMOTIDINE 20 MG TAB PO SCH (08:11)
[2020-11-17] MEDS: CHOLECALCIFEROL (VITD3) 2,000 UNIT CAP PO SCH (08:11)
[2020-11-17] MEDS: FUROSEMIDE 20 MG/2 ML VIAL IV SCH (08:13)
[2020-11-17 09:00] VITALS: BP 145/77
[2020-11-17] MEDS: BUDESONIDE (INHALATION) 180 MCG IH IN SCH ×2 (10:00→19:50)
[2020-11-17] MEDS: AZITHROMYCIN 500MG/ 250ML 250 ML IV SCH (11:27)
[2020-11-17 13:00] VITALS: BP 140/58
[2020-11-17] MEDS: REMDESIVIR 100 MG in SODIUM CHL 0.9% 250 ML IV SCH (15:57)
[2020-11-17] MEDS: ALBUTEROL SULF HFA 90MCG INH 200DOSE IN PRN ×2 (16:42→19:50)
[2020-11-17 17:00] VITALS: BP 108/51
[2020-11-17 21:33] VITALS: BP 115/58
[2020-11-18] VITALS (7 sets, daily range): BP systolic 116–139; BP diastolic 50–75
[2020-11-18] MEDS: ACCU-CHEK COMFORT CURVE STRIP VI SCH ×4 (07:12→22:19)
[2020-11-18] MEDS: LEVOTHYROXINE SODIUM 25 MCG TAB PO SCH (07:13)
[2020-11-18] MEDS: InsuLIN REG 1unit/0.01ml Soln (100units/ml) SC SCH ×4 (07:13→22:25)
[2020-11-18] MEDS: ALBUTEROL SULF HFA 90MCG INH 200DOSE IN PRN (07:14)
[2020-11-18] MEDS: BUDESONIDE (INHALATION) 180 MCG IH IN SCH ×2 (07:14→20:19)
[2020-11-18 08:43] LABS: Potassium 3.3 mmol/L (3.5-5.1)
[2020-11-18 09:08] LABS: Albumin 2.4 g/dL (3.4-5.0); BUN/Creatinine Ratio 26.9; Bilirubin, Total 1.3 mg/dL (0.2-1.0); Calcium 8.8 mg/dL (8.5-10.1); Total Protein 7.1 g/dL (6.4-8.2)
[2020-11-18] MEDS: FERROUS SULFATE 325 MG TAB PO SCH ×2 (10:00→18:07)
[2020-11-18] MEDS: ZINC SULFATE 220mg CAP or TAB PO SCH (10:00)
[2020-11-18] MEDS: cefTRIAXone 1GM/50ML D5W 50 ML IV SCH (10:00)
[2020-11-18] MEDS: POTASSIUM CHL 10 Meq TABLET PO SCH (10:01)
[2020-11-18] MEDS: FAMOTIDINE 20 MG TAB PO SCH (10:01)
[2020-11-18] MEDS: ENOXAPARIN SOD 40 MG/0.4 ML SYRINGE SC SCH (10:01)
[2020-11-18] MEDS: DexAMETHasone SOD PHOS 10MG/1ML VIAL INJ IV SCH (10:01)
[2020-11-18] MEDS: FUROSEMIDE 20 MG/2 ML VIAL IV SCH (10:01)
[2020-11-18] MEDS: CHOLECALCIFEROL (VITD3) 2,000 UNIT CAP PO SCH (10:02)
[2020-11-18] MEDS: ASCORBIC ACID 1,000 MG TAB PO SCH (10:02)
[2020-11-18] MEDS: AZITHROMYCIN 500MG/ 250ML 250 ML IV SCH (11:13)
[2020-11-18] MEDS: REMDESIVIR 100 MG in SODIUM CHL 0.9% 250 ML IV SCH (15:19)
[2020-11-18] MEDS ORDERED: POTASSIUM CHL 20 Meq TABLET PO ONE (17:45)
[2020-11-18] MEDS: PIPERACILLIN-TAZOB 3.375GM 100 ML IV SCH (18:07)
[2020-11-18] MEDS: ENOXAPARIN SOD 80 MG/0.8ML SYRINGE SC SCH (22:20)
[2020-11-19 06:00] VITALS: BP 110/51
[2020-11-19] MEDS: ACCU-CHEK COMFORT CURVE STRIP VI SCH ×4 (07:04→22:09)
[2020-11-19] MEDS: PIPERACILLIN-TAZOB 3.375GM 100 ML IV SCH ×3 (07:05→17:47)
[2020-11-19] MEDS: LEVOTHYROXINE SODIUM 25 MCG TAB PO SCH (07:05)
[2020-11-19] MEDS: InsuLIN REG 1unit/0.01ml Soln (100units/ml) SC SCH ×4 (07:07→22:00)
[2020-11-19 09:00] VITALS: BP 132/58
[2020-11-19] MEDS: ENOXAPARIN SOD 80 MG/0.8ML SYRINGE SC SCH ×2 (09:50→21:53)
[2020-11-19] MEDS: CHOLECALCIFEROL (VITD3) 2,000 UNIT CAP PO SCH (09:50)
[2020-11-19] MEDS: FAMOTIDINE 20 MG TAB PO SCH (09:50)
[2020-11-19] MEDS: ASCORBIC ACID 1,000 MG TAB PO SCH (09:50)
[2020-11-19] MEDS: ZINC SULFATE 220mg CAP or TAB PO SCH (09:50)
[2020-11-19] MEDS: DexAMETHasone SOD PHOS 10MG/1ML VIAL INJ IV SCH ×2 (09:50→21:50)
[2020-11-19] MEDS: FERROUS SULFATE 325 MG TAB PO SCH ×2 (09:50→17:54)
[2020-11-19] MEDS ORDERED: FUROSEMIDE 20 MG/2 ML VIAL IV SCH (10:00)
[2020-11-19] MEDS ORDERED: POTASSIUM CHL 20 Meq TABLET PO SCH (10:00)
[2020-11-19] MEDS: BUDESONIDE (INHALATION) 180 MCG IH IN SCH ×2 (10:00→18:48)
[2020-11-19 10:20] LABS: Basophils # (auto) 0 10 ^3/uL (0-0.2); Eosinophils # (auto) 0 10 ^3/uL (0-0.8); Lymphocytes # (auto) 0.4 10 ^3/uL (0.4-5.4); Monocytes # (auto) 0.2 10 ^3/uL (0-1.3); White Blood Cell 10.3 10^3/uL (4.4-10.8)
[2020-11-19 10:24] LABS: Hematocrit 32.9 % (36.0-46.0); Lymphocytes % (auto) 4.3 % (10.0-50.0); Mean Corpuscular Hemoglobin 26.6 pg (28.0-32.0); Mean Corpuscular Hgb Conc. 33.3 g/dL (32.0-36.0); Mean Corpuscular Volume 79.8 fL (80.0-100.0); Monocytes % (auto) 2.3 % (0.0-12.0); Neutrophils # (auto) 9.6 10 ^3/uL (1.6-8.6); Neutrophils % (auto) 93.4 % (37.0-80.0); Platelet Count (auto) 175 10^3/uL (140-450); Red Blood Cells 4.12 10^6/uL (4.0-5.20); Red Cell Distribution Width 16.4 % (11.8-14.3)
[2020-11-19 10:59] LABS: Albumin 2.2 g/dL (3.4-5.0); Calcium 8.9 mg/dL (8.5-10.1); Potassium 3.5 mmol/L (3.5-5.1)
[2020-11-19 11:12] LABS: BUN/Creatinine Ratio 32.9; Bilirubin, Total 1.5 mg/dL (0.2-1.0); CRP High Sensitivity 16.6 mg/dL (< 0.3); Total Protein 6.6 g/dL (6.4-8.2)
[2020-11-19 11:22] LABS: INR 1.74 (0.9-1.15)
[2020-11-19] MEDS ORDERED: LORazepam 2MG/ML-1ML VIAL IV PRN (11:30)
[2020-11-19 12:59] VITALS: BP 121/51
[2020-11-19] MEDS: ALBUTEROL SULF HFA 90MCG INH 200DOSE IN PRN ×2 (16:18→18:47)
[2020-11-19] MEDS: REMDESIVIR 100 MG in SODIUM CHL 0.9% 250 ML IV SCH (16:47)
[2020-11-19 17:00] VITALS: BP 121/52
[2020-11-19] MEDS ORDERED: diphenhdrAMINE HCL 50 MG/1 ML VL IV ONE (17:30)
[2020-11-19] MEDS ORDERED: ACETAMINOPHEN 650 mg PER 20.3 mL UD PO ONE (17:30)
[2020-11-19] MEDS ORDERED: methylPREDNISolone SOD SUCC 40 MG/ML VL IV ONE (17:30)
[2020-11-19] MEDS ORDERED: TOCILIZUMAB 400 MG in SODIUM CHL 0.9% 80 ML IV ONE (18:00)
[2020-11-19] MEDS: FUROSEMIDE 20 MG/2 ML VIAL IV SCH (21:49)
[2020-11-19] MEDS: POTASSIUM CHL 20 Meq TABLET PO SCH (22:00)
[2020-11-19 22:06] VITALS: BP 123/55
[2020-11-20] MEDS ORDERED: ACETAMINOPHEN 650 MG RECT SUPP PR ONE ×3 (00:30→20:30)
[2020-11-20] MEDS ORDERED: PIPERACILLIN-TAZOB 3.375GM 100 ML IV ONE (01:30)
[2020-11-20 05:00] VITALS: BP 125/60
[2020-11-20] MEDS: PIPERACILLIN-TAZOB 3.375GM 100 ML IV SCH ×4 (06:03→23:24)
[2020-11-20 06:13] VITALS: BP 125/60
[2020-11-20] MEDS: ACCU-CHEK COMFORT CURVE STRIP VI SCH ×4 (06:17→21:25)
[2020-11-20] MEDS: LEVOTHYROXINE SODIUM 25 MCG TAB PO SCH (06:17)
[2020-11-20] MEDS: InsuLIN REG 1unit/0.01ml Soln (100units/ml) SC SCH ×4 (06:18→21:26)
[2020-11-20] MEDS: ALBUTEROL SULF HFA 90MCG INH 200DOSE IN PRN ×3 (06:25→20:19)
[2020-11-20] MEDS: BUDESONIDE (INHALATION) 180 MCG IH IN SCH ×2 (06:25→22:00)
[2020-11-20 07:22] LABS: Lactic Acid w/Reflex 3.1 mmol/L (0.4-2.0)
[2020-11-20 07:38] LABS: Potassium 3.4 mmol/L (3.5-5.1)
[2020-11-20 07:41] LABS: BUN/Creatinine Ratio 37.2; Calcium 8.6 mg/dL (8.5-10.1)
[2020-11-20 07:42] LABS: INR 1.8 (0.9-1.15)
[2020-11-20] MEDS: FERROUS SULFATE 325 MG TAB PO SCH ×2 (07:52→15:56)
[2020-11-20 08:43] VITALS: BP 129/46
[2020-11-20] MEDS ORDERED: methylPREDNISolone SOD SUCC 40 MG/ML VL IV ONE ×3 (09:00→20:30)
[2020-11-20] MEDS ORDERED: ACETAMINOPHEN 650 mg PER 20.3 mL UD PO ONE ×2 (09:00→15:30)
[2020-11-20] MEDS ORDERED: diphenhdrAMINE HCL 50 MG/1 ML VL IV ONE ×3 (09:00→20:30)
[2020-11-20] MEDS ORDERED: TOCILIZUMAB 400 MG in SODIUM CHL 0.9% 80 ML IV ONE ×3 (09:30→21:00)
[2020-11-20] MEDS: FAMOTIDINE 20 MG TAB PO SCH (10:00)
[2020-11-20] MEDS: POTASSIUM CHL 20 Meq TABLET PO SCH ×2 (10:00→21:26)
[2020-11-20] MEDS: ASCORBIC ACID 1,000 MG TAB PO SCH (10:00)
[2020-11-20] MEDS: ZINC SULFATE 220mg CAP or TAB PO SCH (10:00)
[2020-11-20] MEDS: CHOLECALCIFEROL (VITD3) 2,000 UNIT CAP PO SCH (10:00)
[2020-11-20] MEDS: DexAMETHasone SOD PHOS 10MG/1ML VIAL INJ IV SCH ×2 (11:08→21:24)
[2020-11-20] MEDS: ENOXAPARIN SOD 80 MG/0.8ML SYRINGE SC SCH ×2 (11:09→21:25)
[2020-11-20] MEDS ORDERED: POTASSIUM CHL 20MEQ/100ML 100 ML IV ONE (11:45)
[2020-11-20 12:58] VITALS: BP 116/51
[2020-11-20] MEDS: FUROSEMIDE 20 MG/2 ML VIAL IV SCH ×2 (15:24→22:55)
[2020-11-20 17:00] VITALS: BP 117/52
[2020-11-20] MEDS ORDERED: LIDOCAINE 1% (LOCAL ANESTH.) PF 5ml SDV ID ONE (17:30)
[2020-11-20] MEDS: SODIUM CHLOR 0.9% PF (SALINE LOCK) 10ML VIAL/SYR IV SCH (21:24)
[2020-11-20 22:00] VITALS: BP 120/70
[2020-11-21] VITALS (8 sets, daily range): BP systolic 101–130; BP diastolic 47–66
[2020-11-21] MEDS ORDERED: POTASSIUM CHL 20 Meq TABLET PO ONE ×2 (03:15→12:00)
[2020-11-21] MEDS: PIPERACILLIN-TAZOB 3.375GM 100 ML IV SCH ×4 (05:50→23:33)
[2020-11-21] MEDS: LEVOTHYROXINE SODIUM 25 MCG TAB PO SCH (06:04)
[2020-11-21] MEDS: ACCU-CHEK COMFORT CURVE STRIP VI SCH ×3 (06:15→23:39)
[2020-11-21] MEDS: InsuLIN REG 1unit/0.01ml Soln (100units/ml) SC SCH ×3 (06:15→23:42)
[2020-11-21] MEDS: FERROUS SULFATE 325 MG TAB PO SCH ×2 (09:00→18:01)
[2020-11-21] MEDS: ASCORBIC ACID 1,000 MG TAB PO SCH (09:00)
[2020-11-21] MEDS: FAMOTIDINE 20 MG TAB PO SCH (09:00)
[2020-11-21] MEDS: CHOLECALCIFEROL (VITD3) 2,000 UNIT CAP PO SCH (09:00)
[2020-11-21] MEDS: BUDESONIDE (INHALATION) 180 MCG IH IN SCH ×3 (10:00→19:20)
[2020-11-21] MEDS: POTASSIUM CHL 20 Meq TABLET PO SCH ×3 (10:00→19:56)
[2020-11-21] MEDS: ZINC SULFATE 220mg CAP or TAB PO SCH (10:00)
[2020-11-21] MEDS: FUROSEMIDE 20 MG/2 ML VIAL IV SCH (10:31)
[2020-11-21] MEDS: SODIUM CHLOR 0.9% PF (SALINE LOCK) 10ML VIAL/SYR IV SCH ×2 (10:31→19:56)
[2020-11-21] MEDS: DexAMETHasone SOD PHOS 10MG/1ML VIAL INJ IV SCH ×2 (10:31→19:56)
[2020-11-21] MEDS: ENOXAPARIN SOD 80 MG/0.8ML SYRINGE SC SCH ×2 (10:32→19:56)
[2020-11-21] MEDS: ALBUTEROL SULF HFA 90MCG INH 200DOSE IN PRN ×2 (15:13→15:19)
[2020-11-21] MEDS ORDERED: TPN PER PHARMACY 0 ML IV SCH (16:00)
[2020-11-21] MEDS: AMINO ACID INFUSION IN D10W 1,000 ML IV NR (19:55)
[2020-11-21] MEDS: FUROSEMIDE 40 MG/4 ML VIAL IV SCH (22:26)
[2020-11-22] MEDS ORDERED: DEXTROSE (50%) 50ML SYRG IV SCH
[2020-11-22] MEDS: ALBUTEROL SULF HFA 90MCG INH 200DOSE IN PRN (03:13)
[2020-11-22 05:00] VITALS: BP 113/50
[2020-11-22] MEDS: ACCU-CHEK COMFORT CURVE STRIP VI SCH ×4 (05:15→23:29)
[2020-11-22] MEDS: InsuLIN REG 1unit/0.01ml Soln (100units/ml) SC SCH ×4 (05:16→23:30)
[2020-11-22] MEDS: PIPERACILLIN-TAZOB 3.375GM 100 ML IV SCH ×2 (05:32→12:33)
[2020-11-22] MEDS: LEVOTHYROXINE SODIUM 25 MCG TAB PO SCH (05:32)
[2020-11-22] MEDS: FUROSEMIDE 40 MG/4 ML VIAL IV SCH ×2 (05:39→18:22)
[2020-11-22 06:29] LABS: Basophils # (auto) 0 10 ^3/uL (0-0.2); Basophils % (auto) 0.2 % (0.0-2.0); Eosinophils # (auto) 0 10 ^3/uL (0-0.8); Lymphocytes # (auto) 0.2 10 ^3/uL (0.4-5.4); Mean Corpuscular Volume 80.6 fL (80.0-100.0); Monocytes # (auto) 0.3 10 ^3/uL (0-1.3); Monocytes % (auto) 3.1 % (0.0-12.0); Neutrophils # (auto) 8.5 10 ^3/uL (1.6-8.6)
[2020-11-22 06:35] LABS: Hematocrit 35.4 % (36.0-46.0); Hemoglobin 11.8 g/dL (12.2-16.2); Lymphocytes % (auto) 2.6 % (10.0-50.0); Mean Corpuscular Hemoglobin 26.8 pg (28.0-32.0); Mean Corpuscular Hgb Conc. 33.2 g/dL (32.0-36.0); Neutrophils % (auto) 94.1 % (37.0-80.0); Nucleated Red Blood Cells % 0.1 %; Platelet Count (auto) 164 10^3/uL (140-450); Red Cell Distribution Width 16.9 % (11.8-14.3)
[2020-11-22 06:43] LABS: INR 1.67 (0.9-1.15)
[2020-11-22 06:59] LABS: Calcium 8.9 mg/dL (8.5-10.1); Potassium 3.2 mmol/L (3.5-5.1)
[2020-11-22 07:18] LABS: Albumin 2.4 g/dL (3.4-5.0); BUN/Creatinine Ratio 32.7; Bilirubin, Total 1.4 mg/dL (0.2-1.0); CRP High Sensitivity 7.9 mg/dL (< 0.3); Magnesium 2.1 mg/dL (1.6-2.6); Pre Albumin 9.8 mg/dL (20.0-40.0); Total Protein 7.1 g/dL (6.4-8.2)
[2020-11-22] MEDS: FERROUS SULFATE 325 MG TAB PO SCH ×2 (08:00→17:49)
[2020-11-22 09:00] VITALS: BP 109/55
[2020-11-22] MEDS: ZINC SULFATE 220mg CAP or TAB PO SCH (09:40)
[2020-11-22] MEDS: ASCORBIC ACID 1,000 MG TAB PO SCH (09:40)
[2020-11-22] MEDS: FAMOTIDINE 20 MG TAB PO SCH (09:40)
[2020-11-22] MEDS: DexAMETHasone SOD PHOS 10MG/1ML VIAL INJ IV SCH ×2 (09:41→20:31)
[2020-11-22] MEDS: POTASSIUM CHL 20 Meq TABLET PO SCH ×2 (09:41→20:31)
[2020-11-22] MEDS: ENOXAPARIN SOD 80 MG/0.8ML SYRINGE SC SCH ×2 (09:41→20:32)
[2020-11-22] MEDS: SODIUM CHLOR 0.9% PF (SALINE LOCK) 10ML VIAL/SYR IV SCH ×2 (09:41→20:31)
[2020-11-22] MEDS: CHOLECALCIFEROL (VITD3) 2,000 UNIT CAP PO SCH (09:41)
[2020-11-22] MEDS: BUDESONIDE (INHALATION) 180 MCG IH IN SCH (10:00)
[2020-11-22] MEDS ORDERED: POTASSIUM CHL 20MEQ/100ML 100 ML IV ONE (10:00)
[2020-11-22 13:00] VITALS: BP 113/57
[2020-11-22] MEDS ORDERED: CEFEPIME 1 GM in SODIUM CHL 0.9% 50 ML IV ONE (14:30)
[2020-11-22] MEDS ORDERED: DEXTROSE (50%) 50ML SYRG IV PRN (14:30)
[2020-11-22] MEDS: POTASSIUM CHL 20MEQ/100ML 100 ML IV SCH ×2 (16:27→17:48)
[2020-11-22] MEDS: TPN PER PHARMACY IV NR ×9 (20:35)
[2020-11-22] MEDS: CEFEPIME 1 GM in SODIUM CHL 0.9% 50 ML IV SCH (20:35)
[2020-11-22 22:00] VITALS: BP 127/59
[2020-11-22] MEDS ORDERED: INSULIN LANTUS (GLARGINE) 1 /0.01ml (100units/ml) SC SCH (22:00)
[2020-11-22] MEDS: AMINO ACID INFUSION IN D10W 1,000 ML IV NR (23:28)
[2020-11-23] VITALS (9 sets, daily range): BP systolic 106–125; BP diastolic 50–71
[2020-11-23] MEDS: LEVOTHYROXINE SODIUM 25 MCG TAB PO SCH (05:37)
[2020-11-23] MEDS: CEFEPIME 1 GM in SODIUM CHL 0.9% 50 ML IV SCH ×3 (05:37→19:58)
[2020-11-23] MEDS: ACCU-CHEK COMFORT CURVE STRIP VI SCH ×4 (05:37→23:29)
[2020-11-23] MEDS: InsuLIN REG 1unit/0.01ml Soln (100units/ml) SC SCH ×4 (05:41→23:31)
[2020-11-23] MEDS: FUROSEMIDE 40 MG/4 ML VIAL IV SCH ×2 (06:31→18:00)
[2020-11-23 07:43] LABS: Lactic Acid w/Reflex 3.9 mmol/L (0.4-2.0)
[2020-11-23] MEDS: FERROUS SULFATE 325 MG TAB PO SCH ×2 (08:00→18:00)
[2020-11-23 08:19] LABS: Potassium 4.4 mmol/L (3.5-5.1)
[2020-11-23 08:28] LABS: Albumin 2.2 g/dL (3.4-5.0); BUN/Creatinine Ratio 39.8; Bilirubin, Total 1.6 mg/dL (0.2-1.0); Calcium 8.8 mg/dL (8.5-10.1); Magnesium 2.1 mg/dL (1.6-2.6); Phosphorus 2.5 mg/dL (2.5-4.90)
[2020-11-23] MEDS: BUDESONIDE (INHALATION) 180 MCG IH IN SCH ×2 (10:00→21:59)
[2020-11-23] MEDS: DexAMETHasone SOD PHOS 10MG/1ML VIAL INJ IV SCH ×2 (11:37→19:57)
[2020-11-23] MEDS: ZINC SULFATE 220mg CAP or TAB PO SCH (11:37)
[2020-11-23] MEDS: SODIUM CHLOR 0.9% PF (SALINE LOCK) 10ML VIAL/SYR IV SCH ×2 (11:37→19:58)
[2020-11-23] MEDS: ENOXAPARIN SOD 80 MG/0.8ML SYRINGE SC SCH ×2 (11:38→19:58)
[2020-11-23] MEDS: CHOLECALCIFEROL (VITD3) 2,000 UNIT CAP PO SCH (11:38)
[2020-11-23] MEDS: ASCORBIC ACID 1,000 MG TAB PO SCH (11:38)
[2020-11-23] MEDS: POTASSIUM CHL 20 Meq TABLET PO SCH ×2 (11:38→19:57)
[2020-11-23] MEDS: FAMOTIDINE 20 MG TAB PO SCH (11:38)
[2020-11-23] MEDS: INSULIN LANTUS (GLARGINE) 1 /0.01ml (100units/ml) SC SCH (19:56)
[2020-11-23] MEDS: TPN PER PHARMACY IV NR ×9 (19:58)
[2020-11-23] MEDS ORDERED: TPN PER PHARMACY IV NR ×10 (20:00)
[2020-11-23] MEDS: ALBUTEROL SULF HFA 90MCG INH 200DOSE IN PRN (22:00)
[2020-11-24] MEDS: CEFEPIME 1 GM in SODIUM CHL 0.9% 50 ML IV SCH ×4 (06:04→20:33)
[2020-11-24] MEDS: FUROSEMIDE 40 MG/4 ML VIAL IV SCH ×2 (06:04→18:05)
[2020-11-24] MEDS: ACCU-CHEK COMFORT CURVE STRIP VI SCH ×4 (06:05→23:36)
[2020-11-24] MEDS: LEVOTHYROXINE SODIUM 25 MCG TAB PO SCH (06:05)
[2020-11-24] MEDS: InsuLIN REG 1unit/0.01ml Soln (100units/ml) SC SCH ×4 (06:08→23:44)
[2020-11-24 06:20] LABS: Potassium 4.6 mmol/L (3.5-5.1)
[2020-11-24 06:29] LABS: Albumin 2.5 g/dL (3.4-5.0); Bilirubin, Total 2.2 mg/dL (0.2-1.0); Calcium 9.2 mg/dL (8.5-10.1); Magnesium 2.4 mg/dL (1.6-2.6); Phosphorus 3.2 mg/dL (2.5-4.90); Total Protein 6.8 g/dL (6.4-8.2)
[2020-11-24 08:00] VITALS: BP 128/65
[2020-11-24] MEDS: FERROUS SULFATE 325 MG TAB PO SCH ×2 (08:00→18:00)
[2020-11-24] MEDS: BUDESONIDE (INHALATION) 180 MCG IH IN SCH ×2 (09:44→22:00)
[2020-11-24] MEDS: ALBUTEROL SULF HFA 90MCG INH 200DOSE IN PRN (09:44)
[2020-11-24] MEDS: FAMOTIDINE 20 MG TAB PO SCH (10:00)
[2020-11-24] MEDS: POTASSIUM CHL 20 Meq TABLET PO SCH ×2 (10:00→20:32)
[2020-11-24] MEDS: CHOLECALCIFEROL (VITD3) 2,000 UNIT CAP PO SCH (10:00)
[2020-11-24] MEDS: ASCORBIC ACID 1,000 MG TAB PO SCH (10:00)
[2020-11-24] MEDS: ZINC SULFATE 220mg CAP or TAB PO SCH (10:00)
[2020-11-24] MEDS: SODIUM CHLOR 0.9% PF (SALINE LOCK) 10ML VIAL/SYR IV SCH ×2 (10:08→20:33)
[2020-11-24] MEDS: DexAMETHasone SOD PHOS 10MG/1ML VIAL INJ IV SCH (10:08)
[2020-11-24] MEDS: ENOXAPARIN SOD 80 MG/0.8ML SYRINGE SC SCH ×2 (10:09→20:33)
[2020-11-24] MEDS: INSULIN LANTUS (GLARGINE) 1 /0.01ml (100units/ml) SC SCH ×2 (10:13→20:32)
[2020-11-24 16:00] VITALS: BP 123/63
[2020-11-24] MEDS ORDERED: TPN PER PHARMACY IV NR ×8 (20:00)
[2020-11-25] VITALS: BP 119/65
[2020-11-25] MEDS: InsuLIN REG 1unit/0.01ml Soln (100units/ml) SC SCH ×5 (05:45→23:39)
[2020-11-25] MEDS: FUROSEMIDE 40 MG/4 ML VIAL IV SCH ×2 (05:57→17:56)
[2020-11-25] MEDS: CEFEPIME 1 GM in SODIUM CHL 0.9% 50 ML IV SCH ×3 (05:57→20:36)
[2020-11-25] MEDS: ACCU-CHEK COMFORT CURVE STRIP VI SCH ×4 (05:57→23:33)
[2020-11-25] MEDS: LEVOTHYROXINE SODIUM 25 MCG TAB PO SCH (05:58)
[2020-11-25 06:27] LABS: Potassium 3.9 mmol/L (3.5-5.1)
[2020-11-25 06:37] LABS: Albumin 2.6 g/dL (3.4-5.0); BUN/Creatinine Ratio 45.6; Bilirubin, Total 2.9 mg/dL (0.2-1.0); Calcium 9.1 mg/dL (8.5-10.1); Magnesium 2.5 mg/dL (1.6-2.6); Phosphorus 3.4 mg/dL (2.5-4.90); Total Protein 7.3 g/dL (6.4-8.2)
[2020-11-25 08:00] VITALS: BP 121/88
[2020-11-25] MEDS: FERROUS SULFATE 325 MG TAB PO SCH ×2 (08:00→17:12)
[2020-11-25] MEDS: CHOLECALCIFEROL (VITD3) 2,000 UNIT CAP PO SCH (10:00)
[2020-11-25] MEDS: ZINC SULFATE 220mg CAP or TAB PO SCH (10:00)
[2020-11-25] MEDS: BUDESONIDE (INHALATION) 180 MCG IH IN SCH ×2 (10:00→22:00)
[2020-11-25] MEDS: FAMOTIDINE 20 MG TAB PO SCH (10:00)
[2020-11-25] MEDS: ASCORBIC ACID 1,000 MG TAB PO SCH (10:00)
[2020-11-25] MEDS: POTASSIUM CHL 20 Meq TABLET PO SCH ×2 (10:00→20:36)
[2020-11-25] MEDS: DexAMETHasone SOD PHOS 10MG/1ML VIAL INJ IV SCH (10:10)
[2020-11-25] MEDS: SODIUM CHLOR 0.9% PF (SALINE LOCK) 10ML VIAL/SYR IV SCH ×2 (10:10→20:36)
[2020-11-25] MEDS: ENOXAPARIN SOD 80 MG/0.8ML SYRINGE SC SCH ×2 (10:11→20:36)
[2020-11-25] MEDS: INSULIN LANTUS (GLARGINE) 1 /0.01ml (100units/ml) SC SCH ×2 (10:14→20:37)
[2020-11-25 16:00] VITALS: BP 130/70
[2020-11-25] MEDS ORDERED: INSULIN LANTUS (GLARGINE) 1 /0.01ml (100units/ml) SC ONE (17:15)
[2020-11-25] MEDS ORDERED: TPN PER PHARMACY IV NR ×9 (20:00)
[2020-11-25 21:48] VITALS: BP 136/69
[2020-11-26] MEDS: ACCU-CHEK COMFORT CURVE STRIP VI SCH ×4 (05:49→23:55)
[2020-11-26] MEDS: InsuLIN REG 1unit/0.01ml Soln (100units/ml) SC SCH ×4 (05:56→23:59)
[2020-11-26] MEDS: CEFEPIME 1 GM in SODIUM CHL 0.9% 50 ML IV SCH ×3 (06:11→22:18)
[2020-11-26] MEDS: LEVOTHYROXINE SODIUM 25 MCG TAB PO SCH (06:11)
[2020-11-26] MEDS: FUROSEMIDE 40 MG/4 ML VIAL IV SCH ×2 (06:11→17:48)
[2020-11-26 08:00] VITALS: BP 129/73
[2020-11-26] MEDS: FERROUS SULFATE 325 MG TAB PO SCH ×2 (08:00→17:47)
[2020-11-26 08:18] LABS: Potassium 3.6 mmol/L (3.5-5.1)
[2020-11-26 08:27] LABS: Albumin 2.5 g/dL (3.4-5.0); BUN/Creatinine Ratio 55.9; Bilirubin, Total 3.2 mg/dL (0.2-1.0); Calcium 9.5 mg/dL (8.5-10.1); Magnesium 2.4 mg/dL (1.6-2.6); Phosphorus 2.8 mg/dL (2.5-4.90); Total Protein 6.9 g/dL (6.4-8.2)
[2020-11-26] MEDS: POTASSIUM CHL 20 Meq TABLET PO SCH ×2 (08:56→22:18)
[2020-11-26] MEDS: ENOXAPARIN SOD 80 MG/0.8ML SYRINGE SC SCH ×2 (08:56→22:18)
[2020-11-26] MEDS: DexAMETHasone SOD PHOS 10MG/1ML VIAL INJ IV SCH (08:57)
[2020-11-26] MEDS: SODIUM CHLOR 0.9% PF (SALINE LOCK) 10ML VIAL/SYR IV SCH ×2 (09:59→22:18)
[2020-11-26] MEDS: ZINC SULFATE 220mg CAP or TAB PO SCH (10:00)
[2020-11-26] MEDS: CHOLECALCIFEROL (VITD3) 2,000 UNIT CAP PO SCH (10:00)
[2020-11-26] MEDS: BUDESONIDE (INHALATION) 180 MCG IH IN SCH ×3 (10:00→22:00)
[2020-11-26] MEDS: FAMOTIDINE 20 MG TAB PO SCH (10:00)
[2020-11-26] MEDS: ASCORBIC ACID 1,000 MG TAB PO SCH (10:00)
[2020-11-26 16:00] VITALS: BP 117/72
[2020-11-26] MEDS ORDERED: TPN PER PHARMACY IV NR ×8 (20:00)
[2020-11-26] MEDS: INSULIN LANTUS (GLARGINE) 1 /0.01ml (100units/ml) SC SCH (22:43)
[2020-11-27] VITALS: BP 126/70
[2020-11-27] MEDS: FUROSEMIDE 40 MG/4 ML VIAL IV SCH ×2 (06:19→17:04)
[2020-11-27] MEDS: CEFEPIME 1 GM in SODIUM CHL 0.9% 50 ML IV SCH ×3 (06:20→21:38)
[2020-11-27] MEDS: ACCU-CHEK COMFORT CURVE STRIP VI SCH ×4 (06:20→23:51)
[2020-11-27] MEDS: InsuLIN REG 1unit/0.01ml Soln (100units/ml) SC SCH ×4 (06:29→23:51)
[2020-11-27] MEDS: LEVOTHYROXINE SODIUM 25 MCG TAB PO SCH (06:45)
[2020-11-27 07:56] LABS: Potassium 4.1 mmol/L (3.5-5.1)
[2020-11-27 08:00] VITALS: BP 134/71
[2020-11-27] MEDS: FERROUS SULFATE 325 MG TAB PO SCH ×2 (08:00→17:04)
[2020-11-27 08:20] LABS: Albumin 2.6 g/dL (3.4-5.0); BUN/Creatinine Ratio 57.5; Bilirubin, Total 4.1 mg/dL (0.2-1.0); Calcium 9.1 mg/dL (8.5-10.1); Magnesium 2.5 mg/dL (1.6-2.6); Total Protein 6.7 g/dL (6.4-8.2)
[2020-11-27 08:21] LABS: Phosphorus 3.9 mg/dL (2.5-4.90)
[2020-11-27] MEDS: ZINC SULFATE 220mg CAP or TAB PO SCH (08:22)
[2020-11-27] MEDS: POTASSIUM CHL 20 Meq TABLET PO SCH ×2 (08:23→21:37)
[2020-11-27] MEDS: FAMOTIDINE 20 MG TAB PO SCH (08:23)
[2020-11-27] MEDS: ASCORBIC ACID 1,000 MG TAB PO SCH (08:24)
[2020-11-27] MEDS: CHOLECALCIFEROL (VITD3) 2,000 UNIT CAP PO SCH (08:24)
[2020-11-27] MEDS: SODIUM CHLOR 0.9% PF (SALINE LOCK) 10ML VIAL/SYR IV SCH ×2 (08:25→21:38)
[2020-11-27] MEDS: DexAMETHasone SOD PHOS 10MG/1ML VIAL INJ IV SCH (10:00)
[2020-11-27] MEDS: ENOXAPARIN SOD 80 MG/0.8ML SYRINGE SC SCH ×2 (10:01→22:02)
[2020-11-27 16:00] VITALS: BP 117/66
[2020-11-27] MEDS ORDERED: TPN PER PHARMACY IV NR ×9 (20:00)
[2020-11-27] MEDS: INSULIN LANTUS (GLARGINE) 1 /0.01ml (100units/ml) SC SCH (22:12)
[2020-11-27] MEDS: BUDESONIDE (INHALATION) 180 MCG IH IN SCH (23:00)
[2020-11-28] VITALS: BP 130/61
[2020-11-28] MEDS: FUROSEMIDE 40 MG/4 ML VIAL IV SCH (05:47)
[2020-11-28] MEDS: CEFEPIME 1 GM in SODIUM CHL 0.9% 50 ML IV SCH ×3 (05:47→21:14)
[2020-11-28] MEDS: ACCU-CHEK COMFORT CURVE STRIP VI SCH ×3 (06:20→17:41)
[2020-11-28] MEDS: InsuLIN REG 1unit/0.01ml Soln (100units/ml) SC SCH ×3 (06:22→17:44)
[2020-11-28] MEDS: LEVOTHYROXINE SODIUM 25 MCG TAB PO SCH (06:54)
[2020-11-28 06:56] LABS: Potassium 3.8 mmol/L (3.5-5.1)
[2020-11-28 07:17] LABS: Albumin 2.5 g/dL (3.4-5.0); BUN/Creatinine Ratio 63.1; Bilirubin, Total 5.4 mg/dL (0.2-1.0); Calcium 9.2 mg/dL (8.5-10.1); Magnesium 2.6 mg/dL (1.6-2.6); Phosphorus 3.5 mg/dL (2.5-4.90); Total Protein 6.7 g/dL (6.4-8.2)
[2020-11-28] MEDS: FERROUS SULFATE 325 MG TAB PO SCH ×2 (08:00→17:19)
[2020-11-28 09:00] VITALS: BP 119/62
[2020-11-28] MEDS: ASCORBIC ACID 1,000 MG TAB PO SCH (10:00)
[2020-11-28] MEDS: CHOLECALCIFEROL (VITD3) 2,000 UNIT CAP PO SCH (10:00)
[2020-11-28] MEDS: ZINC SULFATE 220mg CAP or TAB PO SCH (10:00)
[2020-11-28] MEDS: FAMOTIDINE 20 MG TAB PO SCH (10:00)
[2020-11-28] MEDS: POTASSIUM CHL 20 Meq TABLET PO SCH (10:00)
[2020-11-28] MEDS: ALBUTEROL SULF HFA 90MCG INH 200DOSE IN PRN (10:20)
[2020-11-28] MEDS: BUDESONIDE (INHALATION) 180 MCG IH IN SCH ×2 (10:20→20:58)
[2020-11-28] MEDS: DexAMETHasone SOD PHOS 10MG/1ML VIAL INJ IV SCH (10:36)
[2020-11-28] MEDS: SODIUM CHLOR 0.9% PF (SALINE LOCK) 10ML VIAL/SYR IV SCH ×2 (10:36→21:06)
[2020-11-28] MEDS: ENOXAPARIN SOD 80 MG/0.8ML SYRINGE SC SCH ×2 (10:36→21:14)
[2020-11-28 17:00] VITALS: BP 124/76
[2020-11-28] MEDS ORDERED: TPN PER PHARMACY IV NR ×9 (20:00)
[2020-11-28] MEDS: AMINO ACID INFUSION IN D10W 1,000 ML IV NR (21:14)
[2020-11-28] MEDS: INSULIN LANTUS (GLARGINE) 1 /0.01ml (100units/ml) SC SCH (21:30)
[2020-11-29] VITALS (60 sets, daily range): BP systolic 61–155; BP diastolic 21–88
[2020-11-29] MEDS: ACCU-CHEK COMFORT CURVE STRIP VI SCH ×5 (00:29→23:22)
[2020-11-29] MEDS: InsuLIN REG 1unit/0.01ml Soln (100units/ml) SC SCH ×5 (00:40→23:39)
[2020-11-29] MEDS ORDERED: ALBUMIN 5% 250 ML IV ONE (01:30)
[2020-11-29] MEDS ORDERED: ETOMIDATE (2MG/ML) 20ML VIAL IV ONE ×2 (02:52→04:30)
[2020-11-29] MEDS ORDERED: SUCCINYLCHOLINE CHLORIDE 20 MG/ML 10ML VIAL IV ONE ×2 (02:52→04:30)
[2020-11-29] MEDS ORDERED: NOREPINEPHRINE 8 MG/250ML KIT 250 ML IV ONE (03:01)
[2020-11-29] MEDS: NOREPINEPHRINE 8 MG/250ML KIT 250 ML IV SCH ×3 (03:30→23:20)
[2020-11-29] MEDS: VASOPRESSIN 50 UNITS in D5W 5% 247.5 ML IV SCH ×2 (03:50→14:24)
[2020-11-29] MEDS: PHENYLEPHRINE IV 250 ML IV SCH ×3 (04:02→11:29)
[2020-11-29] MEDS ORDERED: PHENYLEPHRINE IV 250 ML IV ONE (04:03)
[2020-11-29] MEDS ORDERED: ACETAMINOPHEN 650 mg PER 20.3 mL UD GT PRN (04:30)
[2020-11-29] MEDS: MIDAZOLAM DRIP 50 mg/50mL 50 ML IV SCH (04:45)
[2020-11-29] MEDS ORDERED: SODIUM CHLORIDE 0.9% 500 ML IV ONE (05:00)
[2020-11-29] MEDS ORDERED: SODIUM BICARBONATE 8.4 % INJ 50ML VIAL IV ONE ×4 (05:00→23:30)
[2020-11-29] MEDS ORDERED: SODIUM BICARBONATE 50ML VIAL 150 ML in SOD CHL 0.45% 1,000 ML IV SCH (05:00)
[2020-11-29] MEDS: LEVOTHYROXINE SODIUM 25 MCG TAB PO SCH (05:20)
[2020-11-29] MEDS ORDERED: SODIUM BICARBONATE 8.4% INJ 50ML SYRINGE ONE (05:25)
[2020-11-29] MEDS: CEFEPIME 1 GM in SODIUM CHL 0.9% 50 ML IV SCH (06:00)
[2020-11-29 07:43] LABS: Hemoglobin 12.7 g/dL (12.2-16.2); Mean Corpuscular Hemoglobin 26.6 pg (28.0-32.0); Mean Corpuscular Hgb Conc. 29.6 g/dL (32.0-36.0); Platelet Count (auto) 139 10^3/uL (140-450); Red Blood Cells 4.78 10^6/uL (4.0-5.20); Red Cell Distribution Width 18.5 % (11.8-14.3)
[2020-11-29 07:55] LABS: White Blood Cell 52.9 10^3/uL (4.4-10.8)
[2020-11-29 07:57] LABS: Basophils % (manual) 0 (0.0-2.0); Blast Cells 0; Eosinophils % (manual) 0 (0-7); Promyelocytes % 0; Reactive Lymphocytes 0
[2020-11-29] MEDS: FERROUS SULFATE 325 MG TAB PO SCH (08:00)
[2020-11-29 08:13] LABS: Lactic Acid w/Reflex 16.4 mmol/L (0.4-2.0)
[2020-11-29 08:45] LABS: Chloride 105 mmol/L (98-107); Sodium 145 mmol/L (136-145)
[2020-11-29 08:52] LABS: Albumin 1.8 g/dL (3.4-5.0); Alkaline Phosphatase 295 U/L (45-117); BUN/Creatinine Ratio 32.2; Bilirubin, Total 6.6 mg/dL (0.2-1.0); CRP High Sensitivity 0.23 mg/dL (< 0.3); Calcium 7.9 mg/dL (8.5-10.1); Carbon Dioxide 14 mmol/L (21-32); GFR African American 20 mL/min; GFR Non-African American 17 mL/min; Glucose 109 mg/dL (74-106); Total Protein 4.8 g/dL (6.4-8.2)
[2020-11-29] MEDS ORDERED: EPINEPHrine HCL 250 ML IV SCH (09:00)
[2020-11-29 09:30] LABS: Band Neutrophils % (manual) 7; Lymphocytes % (manual) 13 (10.0-50.0); Metamyelocytes % 4; Monocytes % (manual) 8 (0-12); Myelocytes % 4
[2020-11-29 09:33] LABS: Anion Gap 26 (5-15); Potassium 5.9 mmol/L (3.5-5.1)
[2020-11-29 09:34] LABS: Blood Urea Nitrogen 93 mg/dL (7-18)
[2020-11-29] MEDS: SODIUM CHLOR 0.9% PF (SALINE LOCK) 10ML VIAL/SYR IV SCH ×2 (10:00→22:03)
[2020-11-29] MEDS: BUDESONIDE (INHALATION) 0.5 MG/2 ML NEB NEB SCH ×2 (10:00→18:36)
[2020-11-29] MEDS ORDERED: POTASSIUM CHL 20 Meq TABLET PO SCH (10:00)
[2020-11-29] MEDS: ASCORBIC ACID 1,000 MG TAB PO SCH (10:00)
[2020-11-29] MEDS: ZINC SULFATE 220mg CAP or TAB PO SCH (10:00)
[2020-11-29] MEDS: CHOLECALCIFEROL (VITD3) 2,000 UNIT CAP PO SCH (10:00)
[2020-11-29] MEDS ORDERED: FAMOTIDINE INJECTION 40 MG in SODIUM CHL 0.9% 100 ML IV SCH (10:00)
[2020-11-29] MEDS ORDERED: FUROSEMIDE 40 MG/4 ML VIAL IV SCH (10:00)
[2020-11-29] MEDS: ENOXAPARIN SOD 80 MG/0.8ML SYRINGE SC SCH ×2 (10:00→22:00)
[2020-11-29] MEDS ORDERED: POTASSIUM EFFERVESENT TAB 25 MEQ GT SCH (10:00)
[2020-11-29] MEDS: ALBUTEROL SULF 2.5 MG/0.5ML(0.5%) NEB SOLN NEB PRN ×2 (10:32→18:36)
[2020-11-29] MEDS ORDERED: SODIUM BICARBONATE 50ML VIAL 50 ML in D5W/SOD CHL 0.45% 1,000 ML IV SCH (10:45)
[2020-11-29] MEDS ORDERED: LINEZOLID 600MG/300ML 300 ML IV ONE (11:00)
[2020-11-29] MEDS ORDERED: PANTOPRAZOLE 40 MG/10 ML VIAL INJ IV ONE (11:00)
[2020-11-29] MEDS ORDERED: MEROPENEM 500MG IVPB 50 ML IV ONE ×3 (11:00)
[2020-11-29] MEDS ORDERED: DOPamine 1600MCG/ML D5W 250 ML IV SCH (11:30)
[2020-11-29] MEDS ORDERED: SODIUM ZIRCONIUM CYCL 10 GM PAK PO ONE (11:45)
[2020-11-29] MEDS ORDERED: CALCIUM GLUC 4.65meq/50ml D5AE 50 ML IV ONE ×2 (11:45→23:30)
[2020-11-29] MEDS ORDERED: InsuLIN REG 1unit/0.01ml Soln (100units/ml) IV ONE ×2 (11:45→23:30)
[2020-11-29] MEDS ORDERED: DEXTROSE (50%) 50ML SYRG IV ONE ×2 (11:45→23:30)
[2020-11-29] MEDS ORDERED: SODIUM BICARBONATE 8.4% INJ 50ML SYRINGE IV ONE (11:45)
[2020-11-29] MEDS ORDERED: SODIUM BICARBONATE 50ML VIAL 150 ML in D5W 5% 1,000 ML IV SCH (12:00)
[2020-11-29 12:27] LABS: Calcium 7.2 mg/dL (8.5-10.1); Sodium 143 mmol/L (136-145)
[2020-11-29 12:42] LABS: Albumin 1.8 g/dL (3.4-5.0); Alkaline Phosphatase 288 U/L (45-117); BUN/Creatinine Ratio 27.4; Bilirubin, Total 6.9 mg/dL (0.2-1.0); Carbon Dioxide 14 mmol/L (21-32); GFR African American 17 mL/min; GFR Non-African American 14 mL/min; Glucose 140 mg/dL (74-106); Total Protein 4.7 g/dL (6.4-8.2)
[2020-11-29 12:52] LABS: Blood Urea Nitrogen 93 mg/dL (7-18); Potassium 6.3 mmol/L (3.5-5.1)
[2020-11-29] MEDS ORDERED: EPINEPHrine HCL 1 MG/10 ML SYRG IV ONE (13:10)
[2020-11-29 13:42] LABS: Alanine Aminotransferase 7342 U/L (13-56)
[2020-11-29 13:44] LABS: Aspartate Aminotransferase > 10000 U/L (15-37)
[2020-11-29 13:47] LABS: Alanine Aminotransferase > 1000 U/L (13-56)
[2020-11-29 13:51] LABS: Anion Gap 26 (5-15); Chloride 103 mmol/L (98-107)
[2020-11-29 13:55] LABS: Phosphorus > 9.0 mg/dL (2.5-4.90)
[2020-11-29] MEDS: SODIUM ZIRCONIUM CYCL 10 GM PAK PO SCH ×2 (14:00→23:00)
[2020-11-29 17:19] LABS: Hematocrit 32.8 % (36.0-46.0); Hemoglobin 8.8 g/dL (12.2-16.2); Mean Corpuscular Hemoglobin 27.1 pg (28.0-32.0); Mean Corpuscular Hgb Conc. 26.8 g/dL (32.0-36.0); Mean Corpuscular Volume 100.8 fL (80.0-100.0); Platelet Count (auto) 88 10^3/uL (140-450); Red Blood Cells 3.25 10^6/uL (4.0-5.20); Red Cell Distribution Width 19.3 % (11.8-14.3)
[2020-11-29 17:22] LABS: White Blood Cell 41.7 10^3/uL (4.4-10.8)
[2020-11-29 17:24] LABS: Basophils % (manual) 0 (0.0-2.0); Blast Cells 0; Eosinophils % (manual) 0 (0-7); Promyelocytes % 0; Reactive Lymphocytes 0
[2020-11-29] MEDS ORDERED: InsuLIN REG 1unit/0.01ml Soln (100units/ml) SC ONE (18:15)
[2020-11-29 19:01] LABS: Band Neutrophils % (manual) 8; Lymphocytes % (manual) 9 (10.0-50.0); Metamyelocytes % 3; Monocytes % (manual) 7 (0-12); Myelocytes % 2
[2020-11-29] MEDS ORDERED: TPN PER PHARMACY IV NR ×4 (20:00)
[2020-11-29] MEDS: AMINO ACID INFUSION IN D10W 1,000 ML IV NR (20:19)
[2020-11-29] MEDS ORDERED: INSULIN LANTUS (GLARGINE) 1 /0.01ml (100units/ml) SC SCH (22:00)
[2020-11-29] MEDS ORDERED: MEROPENEM 500MG IVPB 50 ML IV SCH ×2 (22:00)
[2020-11-29] MEDS ORDERED: LINEZOLID 600MG/300ML 300 ML IV SCH ×3 (22:00)
[2020-11-29] MEDS: HYDROCORTISONE SOD SUCC 100 MG/2ML INJ VIAL IV SCH (22:07)
[2020-11-29] MEDS: PANTOPRAZOLE 40 MG/10 ML VIAL INJ IV SCH (22:08)
[2020-11-30] VITALS (62 sets, daily range): BP systolic 78–140; BP diastolic 33–83
[2020-11-30] MEDS: MEROPENEM 500MG IVPB 50 ML IV SCH ×2 (01:44→10:00)
[2020-11-30] MEDS: NOREPINEPHRINE 8 MG/250ML KIT 250 ML IV SCH ×2 (02:25→07:00)
[2020-11-30] MEDS: MIDAZOLAM DRIP 50 mg/50mL 50 ML IV SCH (04:45)
[2020-11-30] MEDS ORDERED: DEXTROSE (50%) 50ML SYRG IV PRN (05:15)
[2020-11-30] MEDS: PHENYLEPHRINE IV 250 ML IV SCH (05:23)
[2020-11-30 05:37] LABS: Hemoglobin 9.4 g/dL (12.2-16.2)
[2020-11-30 05:41] LABS: Hematocrit 37.3 % (36.0-46.0); Mean Corpuscular Hemoglobin 26.5 pg (28.0-32.0); Mean Corpuscular Hgb Conc. 25.1 g/dL (32.0-36.0); Mean Corpuscular Volume 105.6 fL (80.0-100.0); Platelet Count (auto) 102 10^3/uL (140-450); Red Blood Cells 3.53 10^6/uL (4.0-5.20)
[2020-11-30] MEDS: ACCU-CHEK COMFORT CURVE STRIP VI SCH ×2 (05:46→08:00)
[2020-11-30] MEDS: InsuLIN REG 1unit/0.01ml Soln (100units/ml) SC SCH ×2 (05:47→08:00)
[2020-11-30 06:04] LABS: Albumin 1.4 g/dL (3.4-5.0); Calcium 6.8 mg/dL (8.5-10.1); Magnesium 2.5 mg/dL (1.6-2.6)
[2020-11-30 06:06] LABS: BUN/Creatinine Ratio 17.5; Bilirubin, Total 5.8 mg/dL (0.2-1.0); Total Protein 3.5 g/dL (6.4-8.2)
[2020-11-30 06:13] LABS: Red Cell Distribution Width 20.3 % (11.8-14.3)
[2020-11-30 06:14] LABS: Basophils % (manual) 0 (0.0-2.0); Blast Cells 0; Eosinophils % (manual) 0 (0-7); Myelocytes % 0; Promyelocytes % 0; Reactive Lymphocytes 0; White Blood Cell 56.3 10^3/uL (4.4-10.8)
[2020-11-30 06:42] LABS: Potassium 6.4 mmol/L (3.5-5.1)
[2020-11-30] MEDS: HYDROCORTISONE SOD SUCC 100 MG/2ML INJ VIAL IV SCH (06:50)
[2020-11-30] MEDS: SODIUM ZIRCONIUM CYCL 10 GM PAK PO SCH (06:51)
[2020-11-30 07:29] LABS: Phosphorus 17.2 mg/dL (2.5-4.90)
[2020-11-30 08:09] LABS: Band Neutrophils % (manual) 25; Lymphocytes % (manual) 12 (10.0-50.0); Metamyelocytes % 5; Monocytes % (manual) 6 (0-12)
[2020-11-30] MEDS ORDERED: SODIUM BICARBONATE 8.4 % INJ 50ML VIAL IV ONE (09:15)
[2020-11-30] MEDS ORDERED: SODIUM BICARBONATE 8.4% INJ 50ML SYRINGE ONE (09:24)
[2020-11-30] MEDS ORDERED: CALCIUM ACETATE 667 MG CAP NG SCH (09:30)
[2020-11-30] MEDS ORDERED: SODIUM ZIRCONIUM CYCL 10 GM PAK GT SCH (09:30)
[2020-11-30] MEDS: ALBUTEROL SULF 2.5 MG/0.5ML(0.5%) NEB SOLN NEB PRN (09:51)
[2020-11-30] MEDS: BUDESONIDE (INHALATION) 0.5 MG/2 ML NEB NEB SCH (09:51)
[2020-11-30] MEDS: ENOXAPARIN SOD 80 MG/0.8ML SYRINGE SC SCH (10:00)
[2020-11-30] MEDS: ASCORBIC ACID 1,000 MG TAB PO SCH (10:00)
[2020-11-30] MEDS: ZINC SULFATE 220mg CAP or TAB PO SCH (10:00)
[2020-11-30] MEDS: CHOLECALCIFEROL (VITD3) 2,000 UNIT CAP PO SCH (10:00)
[2020-11-30] MEDS: SODIUM CHLOR 0.9% PF (SALINE LOCK) 10ML VIAL/SYR IV SCH (10:00)
[2020-11-30] MEDS: PANTOPRAZOLE 40 MG/10 ML VIAL INJ IV SCH (10:00)
[2020-11-30 10:55] LABS: INR 1.92 (0.9-1.15)
[2020-11-30] MEDS: SODIUM BICARBONATE 50ML VIAL 150 ML in SOD CHL 0.45% 1,000 ML IV SCH ×3 (11:07)
[2020-11-30] MEDS ORDERED: MORPHINE SULF INJ 2 MG/ML SYRINGE 1ML IV PRN (14:45)
[2020-11-30] MEDS ORDERED: LORazepam 2MG/ML-1ML VIAL IV PRN (14:45)
[2020-11-30] MEDS ORDERED: TPN PER PHARMACY IV NR ×6 (20:00)
== END 2020-11-30 22:24 | DRG 871 ==
LOC: ER 09:40 → TELE 19:10 → TELE-WESTW 11-15 23:49 → ICU WEST 11-29 04:15
PROVIDERS: ADMIT Nurse Practitioner Acute Care; ATTEND Internal Medicine
PROC: XW033E5 Introduction of Remdesivir Anti-infective into Peripheral Vein, Percutaneous Approach, New Technology Group 5 (ICD-10-PCS; 2020-11-14)
PROC: 5A09557 Assistance with Respiratory Ventilation, Greater than 96 Consecutive Hours, Continuous Positive Airway Pressure (ICD-10-PCS; 2020-11-18)
PROC: XW033H5 Introduction of Tocilizumab into Peripheral Vein, Percutaneous Approach, New Technology Group 5 (ICD-10-PCS; 2020-11-19)
PROC: 02HV33Z Insertion of Infusion Device into Superior Vena Cava, Percutaneous Approach (ICD-10-PCS; 2020-11-20)
PROC: XW13325 Transfusion of Convalescent Plasma (Nonautologous) into Peripheral Vein, Percutaneous Approach, New Technology Group 5 (ICD-10-PCS; 2020-11-21)
PROC: 5A12012 Performance of Cardiac Output, Single, Manual (ICD-10-PCS; principal; 2020-11-29)
PROC: 5A1945Z Respiratory Ventilation, 24-96 Consecutive Hours (ICD-10-PCS; 2020-11-29)
PROC: 0BH17EZ Insertion of Endotracheal Airway into Trachea, Via Natural or Artificial Opening (ICD-10-PCS; 2020-11-29)
DX: A41.89 Other specified sepsis (principal); U07.1 COVID-19; J12.89 Other viral pneumonia; J96.01 Acute respiratory failure with hypoxia; N17.0 Acute kidney failure with tubular necrosis; K72.00 Acute and subacute hepatic failure without coma; R65.21 Severe sepsis with septic shock; I21.A1 Myocardial infarction type 2; E87.1 Hypo-osmolality and hyponatremia; D68.59 Other primary thrombophilia; J98.11 Atelectasis; K92.1 Melena; G93.1 Anoxic brain damage, not elsewhere classified; E87.2 Acidosis; E03.9 Hypothyroidism, unspecified; D50.9 Iron deficiency anemia, unspecified; I10 Essential (primary) hypertension; E78.5 Hyperlipidemia, unspecified; E87.6 Hypokalemia; E87.5 Hyperkalemia; E11.40 Type 2 diabetes mellitus with diabetic neuropathy, unspecified; E88.09 Other disorders of plasma-protein metabolism, not elsewhere classified; I46.9 Cardiac arrest, cause unspecified; Z51.5 Encounter for palliative care; Z96.659 Presence of unspecified artificial knee joint; R00.0 Tachycardia, unspecified; E83.39 Other disorders of phosphorus metabolism; Z88.2 Allergy status to sulfonamides; E11.65 Type 2 diabetes mellitus with hyperglycemia
CPT/HCPCS: 36415; 36600; 71045; 76775; 80048; 80053; 80061; 80076; 81001; 82040; 82306; 82728; 82805; 82962; 83605; 83615; 83735; 83880; 84100; 84132; 84443; 84478; 84484; 85007; 85025; 85027; 85379; 85610; 85730; 86141; 86850; 86900; 86901; 87040; 87070; 87077; 87205; 87426; 87804; 92950; 93306; 93970; 94002; 94003; 94640; 94660; 97110; 97530; 99291; C9113; G0378; J0330; J0610; J0696; J1100; J1815; J2185; J2543; J3480; J3490; J7060; J7131